=== PATIENT | female | born 1985 | race Caucasian/White ===

== ENCOUNTER 2018-09-20 15:11 | Inpatient (IN) ==
[2018-09-20] MEDS: DIPRIVAN 1% 1,000 MG/100 ML BOTTLE IV SCH ×4 (15:21→23:43)
[2018-09-20] MEDS ORDERED: AMIDATE ONE ×2 (15:23)
[2018-09-20] MEDS ORDERED: QUELICIN ONE ×2 (15:23)
[2018-09-20] MEDS ORDERED: NORCURON ONE ×2 (15:23)
[2018-09-20] MEDS ORDERED: VERSED ONE ×6 (15:23→15:47)
[2018-09-20] MEDS ORDERED: DIPRIVAN 1% 2,000 MG/200 ML BOTTLE ONE (15:25)
[2018-09-20] MEDS ORDERED: NS 1,000 ML IV ONE (15:25)
[2018-09-20] MEDS ORDERED: EPIPEN IM ONE (15:26)
[2018-09-20] MEDS ORDERED: PEPCID IV ONE (15:26)
[2018-09-20] MEDS ORDERED: BENADRYL IV ONE (15:26)
[2018-09-20] MEDS ORDERED: SODIUM CHLORIDE 0.9% INJ ONE (15:26)
[2018-09-20] MEDS ORDERED: SOLU-MEDROL IV ONE (15:26)
[2018-09-20] MEDS ORDERED: VERSED IV ONE ×3 (15:26→16:50)
[2018-09-20] MEDS ORDERED: QUELICIN IV ONE (15:26)
[2018-09-20] MEDS ORDERED: ALBUTEROL NEB INH ONE (15:27)
[2018-09-20] MEDS ORDERED: MAGNESIUM SULFATE 2 GM/S.W.I. 2 GM/50 ML IVPB IV ONE (15:27)
[2018-09-20] MEDS ORDERED: EPINEPHRINE IM ONE (15:30)
[2018-09-20 15:32] LABS: ALLEN TEST YES; BE -1.5 mmoll (-3.0-3.0); BLOOD TYPE ARTERIAL; HCO3-(ACT) 23.8 mmoll (20.0-26.0); METHB 1.6 % (0.0-1.5); MODALITY RESUSC BAG; O2(CT) 17.5 mL/dL (15.0-23.0); O2HB 97.2 % (95.0-99.0); PCO2(98.6) 41 mmHg (35-45); PO2(98.6) 455 mmHg (60-100); SAMPLE BLOOD; SAO2 99.8 % (95.0-100.0); THB 11.9 g/dL (11.5-17.4); pH(98.6) 7.37 (7.35-7.45)
[2018-09-20] MEDS ORDERED: ZOFRAN ONE (15:50)
[2018-09-20] MEDS ORDERED: ZOFRAN IV ONE (15:51)
[2018-09-20] MEDS ORDERED: DIPRIVAN 1% IV ONE (15:51)
--- NOTE | 2018-09-20 16:02 | Diag Imaging Result Doc PS360 ---
EXAM: CHEST-1 VIEW INDICATION: SOB TECHNIQUE: One view COMPARISON: 09/02/2018 FINDINGS: Inspiration is suboptimal. An ET tube is in place. The tip projects over the trachea and above the mervat at about the T3 level. The lungs are grossly clear. There is no discrete pleural fluid collection or pneumothorax. Poor inspiration is causing central vascular crowding. Cardiac silhouette is unremarkable. IMPRESSION: ET tube in position as described. Low lung volumes. Essentially unremarkable, otherwise. Electronically signed by Rick Jimenes 09/20/2018 3:59 PM
[2018-09-20 16:45] LABS: BASO# 0.07 X1000 (0.0-0.2); BASO% 0.9 % (0.0-0.8); EOS# 0.11 X1000 (0.0-0.7); EOS% 1.4 % (0.0-10.0); HEMATOCRIT 38.9 % (37.0-47.0); HEMOGLOBIN 12.5 g/dL (12.0-16.0); IMM GRAN# 0.02 X1000 (0.0-0.04); IMM GRAN% 0.2 % (0.0-0.5); LYMPH# 4.52 X1000 (1.2-3.4); MCH 29.4 PG (27-31); MCHC 32.1 g/dL (33-37); MCV 91.5 FL (81-99); MONO# 0.66 X1000 (0.11-0.59); MONO% 8.2 % (1.7-9.3); MPV 11.7 FL (7.4-10.4); NEUT# 2.69 X1000 (1.4-6.5); NEUT% 33.3 % (42.2-75.2); PLT 331 X1000 (130-400); RBC 4.25 XMIL (4.2-5.4); RDW 12.5 % (11.5-14.5); WBC 8.07 X1000 (4.8-10.8)
[2018-09-20 17:02] LABS: AGAP 14; ALB/GLOB RATIO 1.6; ALBUMIN 4.2 g/dL (3.5-5.0); ALKALINE PHOSPHATASE 54 U/L (32-104); BUN 8 mg/dL (8-22); CHLORIDE 102 mmol/L (98-107); COSMO 276; CREATININE 0.7 mg/dL (0.5-0.9); ESTIMATED GFR > 60; GLUCOSE 102 mg/dL (70-104); GOT 15 U/L (10-30); GPT 10 U/L (10-36); MAGNESIUM 1.8 mg/dL (1.5-2.7); POTASSIUM 3.6 mmol/L (3.5-5.1); SODIUM 139 mmol/L (136-145); TCO2 23 mmol/L (25-35); TOTAL BILIRUBIN 0.36 mg/dL (0.20-1.00); TOTAL PROTEIN 6.9 g/dL (6.3-8.3)
--- NOTE | 2018-09-20 17:18 | PROVIDER DOCUMENTATION ---
This chart was entered by Ailyn Harris Scribe, acting as scribe for Patrick Awan MD. HPI-Respiratory General - General Stated Complaint: CANT BREATH Time Seen by Provider: 09/20/18 15:11 Source: RN/ (RN) Allergies/Adverse Reactions: Patient Allergies Allergy/AdvReac Type Severity Reaction Status Date / Time Penicillins Allergy Severe ANAPHYLAXIS Verified 06/19/18 06:12 piperacillin [From Zosyn] Allergy Severe ANAPHYLAXIS Verified 06/19/18 06:12 tazobactam [From Zosyn] Allergy Severe ANAPHYLAXIS Verified 06/19/18 06:12 morphine Allergy Intermediate RASH Verified 06/19/18 06:12 cephalexin monohydrate * AdvReac Mild LEG Verified 06/19/18 06:12 [From Keflex] CRAMPING doxycycline AdvReac Unknown Verified 06/19/18 06:12 levofloxacin [From Levaquin] AdvReac Unknown Verified 06/19/18 06:12 Home Medications: Home Medication List Medication Instructions Recorded Confirmed Last Taken Type Duloxetine [Cymbalta] 20 mg PO BID 05/18/18 09/02/18 09/01/18 History Mesalamine 800 mg PO BID 05/18/18 09/02/18 09/01/18 History Tizanidine HCl [Zanaflex] 8 mg PO QPM PRN 05/18/18 09/02/18 05/17/18 21:00 History Alprazolam [Xanax] 1 mg PO BID PRN PRN 15 Days #30 tab 09/06/18 Unknown Rx Budesonide/Formoterol Fumarate 10.2 gm INHALATION BID 30 Days #1 09/06/18 09/02/18 09/01/18 Rx [Symbicort 160-4.5 Mcg Inhaler] hfa.aer.ad NS Cholecalciferol (Vit D3) [Vitamin 1,000 unit PO DAILY 30 Days #30 tab 09/06/18 Unknown Rx D3] - History of Present Illness-Resp Nature of Presenting Problem: Patient is a 32 year old female who presents to the ED with respiratory distress. 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 Patient's coworkers states patient had received an albuterol treatment and solumedrol prior to arrival in the ED. Patient's coworkers states history of asthma, vocal paralysis and bronchospasm. 1510 - Patient arrived in ED. 1510 - Patient received 0.3 mg of Epi IM 1513 - 20 IV placed in right hand. 1516 - 2.5 mg of Versed given. 1517 - 100 mg of Succ given. 1518 - Bolus hung. Dr. Awan intubated patient with a 7.5 tube. 1520 - 2.5 mg of Versed given. Quality of Pain: reports: tightness Severity in ED: reports: severe Onset/Duration: reports: just prior to arrival Timing: reports: still present Current Respiratory Medication Therapy: Initiated see nurses note Modifying Factors: improves with: nothing Associated Symptoms: reports: shortness of breath Similar Symptoms Previously?: Yes Recently seen or treated by another doctor?: Yes (f) Review of Systems - Adult - REVIEW OF SYSTEMS - ADULT ROS:: unobtainable per condition Constitutional: reports: no symptoms reported Eyes: reports: no symptoms reported Ears, Nose, Mouth & Throat: reports: no symptoms reported Cardiovascular: reports: no symptoms reported Respiratory: reports: no symptoms reported Gastrointestinal: reports: no symptoms reported Genitourinary: reports: no symptoms reported Musculoskeletal: reports: no symptoms reported Integumentary: reports: no symptoms reported Neurological: reports: no symptoms reported Psychiatric: reports: no symptoms reported Endocrine: reports: no symptoms reported Hematologic/Lymphatic: reports: no symptoms reported Allergic/Immunologic: reports: no symptoms reported All Other Systems: Reviewed and Negative Past History - Adult - PAST MEDICAL HISTORY-ADULT Review of Records: reports: Nursing Assessment Review, Medications Reviewed, Social history reviewed & non-contributory. Major Childhood Illnesses: reports: denies history Cardiovascular: reports: denies history Respiratory: reports: asthma Gastrointestinal: reports: Crohn's, GERD Obstetrical/Gynecological: reports: denies history Genitourinary: reports: kidney stones Musculoskeletal: reports: denies history Neurological: reports: headaches/migraines Psychiatric: reports: denies history Endocrine/Immune: reports: denies history Other Conditions: reports: denies history - PRIOR SURGERIES/PROCEDURES Surgical/Procedure History: reports: BTL, bowel surgery (RESECTION), other (lithrotripsy) - IMMUNIZATION STATUS Childhood Immunizations: See Nurse Assessment Flu Vaccine: See Nurse Assessment - FAMILY HISTORY Family History: reviewed, not pertinent - SOCIAL HISTORY Smoking: denies Substance Use: denies Living Situation: family Physical Exam-General - PHYSICAL EXAM-ADULT Initial Vital Signs Reviewed: Yes - CONSTITUTIONAL General Appearance: alert, severe distress - RESPIRATORY Respiratory: respiratory distress (severe), decreased breath sounds, wheezing - CARDIOVASCULAR Cardiovascular: no edema, no murmur, tachycardia (regular) - GASTROINTESTINAL (ABDOMEN) Abdominal Exam: non tender, soft - MUSCULOSKELETAL Extremity: no pedal edema, no calf tenderness, normal capillary refill - NEUROLOGIC Neurologic: grossly normal Progress - PLAN OF CARE/RESULTS Progress/Plan/Lab Results: Vital Signs - 8 hr 09/20/18 15:17 09/20/18 15:18 09/20/18 15:20 Pulse Rate 125 H 124 H 123 H Respiratory Rate 18 18 Blood Pressure 182/157 137/98 146/89 O2 Sat by Pulse Oximetry 100 100 09/20/18 15:22 09/20/18 15:26 09/20/18 15:28 Pulse Rate 115 H 148 H 148 H Respiratory Rate Blood Pressure 124/74 116/87 113/101 O2 Sat by Pulse Oximetry 100 100 100 09/20/18 15:31 09/20/18 15:34 09/20/18 15:38 Pulse Rate 131 H 120 H 135 H Respiratory Rate Blood Pressure 120/87 135/80 129/80 O2 Sat by Pulse Oximetry 99 100 100 09/20/18 15:45 09/20/18 15:56 09/20/18 15:58 Pulse Rate 132 H 125 H 118 H Respiratory Rate Blood Pressure 133/56 121/66 117/68 O2 Sat by Pulse Oximetry 100 100 100 09/20/18 16:00 09/20/18 16:02 09/20/18 16:04 Pulse Rate 125 H 133 H 127 H Respiratory Rate Blood Pressure 99/69 118/68 119/73 O2 Sat by Pulse Oximetry 100 100 100 09/20/18 16:06 09/20/18 16:08 09/20/18 16:10 Pulse Rate 124 H 126 H 124 H Respiratory Rate Blood Pressure 129/80 124/74 118/74 O2 Sat by Pulse Oximetry 100 100 100 09/20/18 16:12 09/20/18 16:14 09/20/18 16:34 Pulse Rate 125 H 123 H 126 H Respiratory Rate Blood Pressure 115/78 121/74 116/74 O2 Sat by Pulse Oximetry 100 100 98 09/20/18 16:43 09/20/18 16:47 09/20/18 16:50 Pulse Rate 127 H 123 H 126 H Respiratory Rate Blood Pressure 114/68 O2 Sat by Pulse Oximetry 99 100 100 09/20/18 17:00 09/20/18 17:02 09/20/18 17:10 Pulse Rate 119 H 119 H 115 H Respiratory Rate Blood Pressure 127/77 O2 Sat by Pulse Oximetry 100 100 100 Laboratory Results - last 24 hr 09/20/18 09/20/18 09/20/18 15:25 15:25 15:25 WBC 8.07 RBC 4.25 Hgb 12.5 Hct 38.9 MCV 91.5 MCH 29.4 MCHC 32.1 L RDW Std Deviation 12.5 Plt Count 331 MPV 11.7 H Immature Gran % (Auto) 0.2 Neut % (Auto) 33.3 L Lymph % (Auto) 56.0 H Winkler % (Auto) 8.2 Eos % (Auto) 1.4 Baso % (Auto) 0.9 H Immature Gran # (Auto) 0.02 Neut # (Auto) 2.69 Lymph # (Auto) 4.52 H Winkler # (Auto) 0.66 H Eos # (Auto) 0.11 Baso # (Auto) 0.07 Specimen Type ARTERIAL Sample Site R RADIAL pH 7.37 pCO2 41 pO2 455 H HCO3 23.8 Base Excess -1.5 Oxyhemoglobin 97.2 ABG O2 Sat (Calculated) 17.5 ABG O2 Saturation 99.8 ABG Carboxyhemoglobin 1.00 ABG Methemoglobin 1.6 H Tato Test YES A-a O2 Difference 207.0 Total Hemoglobin 11.9 Lactate 2.70 H Blood Gas Modality RESUSC BAG FiO2 % 100.0 Sodium 139 Potassium 3.6 Chloride 102 Carbon Dioxide 23 L Anion Gap 14 BUN 8 Creatinine 0.7 Estimated GFR/1.73 m2 > 60 BUN/Creatinine Ratio 11 Glucose 102 Calculated Osmolality 276 Calcium 9.0 Magnesium 1.8 Total Bilirubin 0.36 AST 15 ALT 10 Alkaline Phosphatase 54 Total Protein 6.9 Albumin 4.2 Globulin 2.7 Albumin/Globulin Ratio 1.6 Orders Category Date Time Status CHEST-1 VIEW [RAD] Stat Exams 09/20/18 15:24 Completed ABG [RESP] Routine Lab 09/20/18 15:25 Completed CBC WITH ELECTRONIC DIFF [HEME] Stat Lab 09/20/18 15:25 Completed CMP [COMPREHENSIVE METABOLIC PANEL] [CHEM] Stat Lab 09/20/18 15:25 Completed MAGNESIUM [CHEM] Stat Lab 09/20/18 15:25 Completed 0.9% Sodium Chloride Inj [Ns] 1,000 ml Med 09/20/18 15:25 Active IV 125 mls/hr Albuterol [Albuterol Neb] Med 09/20/18 15:27 Discontinued 10 mg INH NOW ONE Diphenhydramine [Benadryl] Med 09/20/18 15:26 Discontinued 50 mg IV NOW ONE Epinephrine Med 09/20/18 15:30 Discontinued 0.3 mg IM NOW ONE Etomidate [Amidate] Med 09/20/18 15:23 Discontinued 40 mg .ROUTE .STK-MED ONE Famotidine [Pepcid] Med 09/20/18 15:26 Discontinued 20 mg IV NOW ONE Magnesium Sulfate 2 gm/S.w.i. [Magnesium Sulfate 2 gm/S Med 09/20/18 15:27 Discontinued .w.i] 2 gm in 50 ml IV NOW Methylprednisolone Sod Succ [Solu-Medrol] Med 09/20/18 15:26 Discontinued 125 mg IV STAT ONE Midazolam [Versed] Med 09/20/18 15:23 Discontinued 5 mg .ROUTE .STK-MED ONE Midazolam [Versed] Med 09/20/18 15:28 Discontinued 5 mg .ROUTE .STK-MED ONE Midazolam [Versed] Med 09/20/18 15:26 Discontinued 5 mg IV NOW ONE Midazolam [Versed] Med 09/20/18 15:46 Discontinued 5 mg IV NOW ONE Midazolam [Versed] Med 09/20/18 16:50 Discontinued 5 mg IV NOW ONE Ondansetron [Zofran] Med 09/20/18 15:50 Discontinued 4 mg .ROUTE .STK-MED ONE Ondansetron [Zofran] Med 09/20/18 15:51 Discontinued 4 mg IV NOW ONE Propofol [Diprivan 1%] Med 09/20/18 15:51 Discontinued 10 mg IV NOW ONE Propofol [Diprivan 1%] Med 09/20/18 15:25 Discontinued 1,000 mg in 100 ml .ROUTE As directed Propofol [Diprivan 1%] Med 09/20/18 16:00 Active 1,000 mg in 100 ml IV As Directed mls/hr Sodium Chloride 0.9% Med 09/20/18 15:26 Discontinued 5 - 10 ml INJ NOW ONE Succinylcholine [Quelicin] Med 09/20/18 15:26 Discontinued 100 mg IV NOW ONE Succinylcholine [Quelicin] Med 09/20/18 15:23 Discontinued 200 mg .ROUTE .STK-MED ONE Vecuronium [Norcuron] Med 09/20/18 15:23 Discontinued 10 mg .ROUTE .STK-MED ONE Aerosol Treatments Routine Oth 09/20/18 15:27 Active Aerosol Treatments Stat Oth 09/20/18 15:27 Active EKG [EKG] Stat Ther 09/20/18 15:25 Ordered Result Diagrams: 09/20/18 15:25 09/20/18 15:25 - XRAY 1 XRAY Study: Chest Impression: See EMR Report (EXAM: CHEST-1 VIEW INDICATION: SOB TECHNIQUE: One view COMPARISON: 09/02/2018 FINDINGS: Inspiration is suboptimal. An ET tube is in place. The tip projects over the trachea and above the mervat at about the T3 level. The lungs are grossly clear. There is no discrete pleural fluid collection or pneumothorax. Poor inspiration is causing central vascular crowding. Cardiac silhouette is unremarkable. IMPRESSION: ET tube in position as described. Low lung volumes. Essentially unremarkable, otherwise. Electronically signed by Rick Jimenes 09/20/2018 3:59 PM 09/20/18 [id number] Interpreting Physician: Rick Jimenes MD Dictated Date/Time: 09/20/18 1558 cc: Patrick Awan MD; None,PCP) - CONSULTS/PCP/HOSPITALIST Notification #1 *Consult/PCP/Hospitalist*: ORTIZ Francois for Hospitalist Time Discussed: 17:14 (Dr. Lemus accepted admit ) Reason/Comments: Dr. Awan consulted with Priscila about patient. Consult Disposition: Admit Procedures - INTUBATION Time of Intubation: 15:18 Intubation Method: orotracheal Equipment: Other (MAC 3) Tube Size (cm): 7.5 Pretreated with 100% Oxygen?: Yes Breath Sounds after Intubation: equal ETT Primary Tube Confirmation: Capnometry CO2 Change, Direct Visualization, Chest Rise and Fall, Tube placement verified on XRAY Intubation Complications: no complications Vent Settings: See Respiratory Therapy Notes Departure - Departure Date of Disposition Decision: 09/20/18 Time of Disposition Decision: 16:47 DIAGNOSIS: Acute respiratory distress Disposition: ADMITTED INPATIENT 09 Certified Medical Emergency: Emergent Condition: Fair Referrals and Follow-Ups: None,PCP [NON-STAFF PROVIDER] - - Critical Care Note This patient required my direct & personal management of CC.: Yes Total Time (mins): 61 Critical Care Statement: This patient required my direct personal management to treat or rule out processes, the absence of which, could potentiallly result in sudden, clinically significant life or limb threatening deterioration. Attestation - Physician/ SHELLY Attestation Patient care was provided by Advanced Practice Provider:: No The physician spent face to face time with patient:: Yes Advanced Practice Provider documentation review:: Supervising physician onsite and consulted in the evaluation and care of this patient. The physician did have a face to face encounter with the patient. This chart was documented by the indicated scribe, (Ailyn Harris Scribe) and accurately reflects the services I performed and decisions made by me, Patrick Awan MD, as attested by the provider's signature.
[2018-09-20] MEDS ORDERED: PHENERGAN IM ONE (17:42)
[2018-09-20] MEDS ORDERED: HALDOL IV PRN (18:23)
[2018-09-20] MEDS ORDERED: HALDOL IV SCH (18:30)
[2018-09-20 19:04] LABS: URINE SOURCE CATH
[2018-09-20] MEDS ORDERED: ATIVAN IV PRN (19:07)
[2018-09-20] MEDS ORDERED: ZOFRAN IV PRN (19:07)
[2018-09-20] MEDS ORDERED: DUONEB (A & A) INH PRN (19:07)
[2018-09-20 19:12] LABS: BILIRUBIN URINE NEGATIVE (NEGATIVE); BLOOD URINE TRACE (NEGATIVE); COLOR YELLOW; GLUCOSE URINE NEGATIVE (NEGATIVE); KETONE URINE NEGATIVE (NEGATIVE); LEUKOCYTES URINE NEGATIVE (NEGATIVE); NITRITE URINE NEGATIVE (NEGATIVE); PH URINE 5.5; PROTEIN URINE NEGATIVE (NEGATIVE); SP GRAVITY URINE 1.004; TURBIDITY URINE CLEAR (CLEAR); UROBILINOGEN URINE NORMAL (NORMAL)
[2018-09-20 19:13] LABS: UR EPITHELIAL CELLS <10 /HPF (<10); URINE BACTERIA NEGATIVE /HPF; URINE RBC <10 /HPF (<10); URINE WBC <10 /HPF (<10)
--- NOTE | 2018-09-20 19:13 | HISTORY AND PHYSICAL ---
CHIEF COMPLAINT: Respiratory distress. 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 Actually I talked to her this morning, and she did not have any problems apparently at all. Apparently, the patient's coworkers reported the patient said she was not able to breathe. According to the ER nursing staff, the patient was in severe respiratory distress, and she received epinephrine and Solu- Medrol prior to the arrival to the ER, but she stopped breathing, so that is why she was intubated. She had been hospitalized here from 09/02/2018 to 09/06/2018. She was discharged with the diagnoses of panic disorder, fibromyalgia, depression, bronchial asthma and possible vocal cord dysfunction. Here, upon my examination, she is intubated, and she is almost maxed out on a Diprivan drip but she is able to follow commands, and she tries to write down what she wants to say. She is on the ventilator. She is going to be sent to the intensive care unit. PAST MEDICAL HISTORY: 1. Bronchial asthma. 2. Paroxysmal laryngospasm. 3. Anxiety disorder. 4. Crohn disease. 5. Possible vocal cord dysfunction. PAST SURGICAL HISTORY: Bilateral tubal ligation. SOCIAL HISTORY: The patient is . 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 The patient never smoked. She does not drink alcohol or use any illicit drugs. FAMILY HISTORY: Positive for Crohn disease, asthma, COPD breast cancer, diabetes, leukemia and hypertension. REVIEW OF SYSTEMS: Not possible to obtain because of the clinical situation of the patient being intubated. ALLERGIES: The patient is apparently allergic to penicillin, Zosyn, morphine, cephalexin, doxycycline and levofloxacin. PHYSICAL EXAMINATION: VITAL SIGNS: Temperature 98.1, heart rate 110, respiratory rate 12, blood pressure 123/75, O2 saturation 100% on mechanical ventilator at FiO2 of 50%. GENERAL: This is a 32-year-old female lying in bed in no acute distress. Pupils equal, round, reactive to light and accommodation. Anicteric sclerae and pale conjunctivae. Patient intubated. NECK: No JVD noted. No carotid bruits. No lymphadenopathy. No thyromegaly. CARDIOVASCULAR EXAM: S1-S2 heard. No murmurs, gallops, or rubs. Regular rate and rhythm. RESPIRATORY: Minimal coarse breath sounds and wheezing in both pulmonary bases. The patient is not having any work of breathing or using any accessory muscles. ABDOMEN: Soft, nontender to palpation. Bowel sounds present. No organomegaly. EXTREMITIES: No clubbing, cyanosis, or edema. Peripheral pulses present in both legs. NEUROLOGICAL: Patient alert and oriented x3. Moves 4 extremities. LABORATORY DATA: White cell count 8.07, hemoglobin 12.5, hematocrit 38.9, platelets 331. ABG shows pH of 7.37, with pCO2 of 41 and PO2 of 455. That was taken on FiO2 of 100%, with normal BMP. ASSESSMENT AND PLAN: 1. Acute respiratory failure. At this point we do not know exactly what triggered this problem. I do not know if she got an episode of laryngospasm again. The fact is, this patient developed acute respiratory failure with respiratory arrest and needed to be intubated. At this point, she is on the ventilator with FiO2 of 50%. At this point, considering her history of allergies, we are going to start Solu-Medrol 80 mg IV every 8 hours, and also Protonix 40 mg IV every 12 hours as well. We are going to consult Dr. George for Pulmonary, and will follow recommendations. We will provide also breathing treatments with DuoNeb every 4 hours scheduled and every 2 hours p.r.n. At this point, considering her normal white count and also on the x-ray that we do not see any signs of infection, I am not going to start any antibiotics yet. We are going to order blood cultures and a sputum culture. We will use Haldol 5 mg IV every 4 hours p.r.n. for agitation. 2. Anxiety disorder. We will use Ativan p.r.n. 3. Possible vocal cord dysfunction. At this point, patient is intubated, so we will monitor this patient closely in the ICU. cc: Curly Stephens MD
[2018-09-20] MEDS: NS 1,000 ML IV SCH (20:46)
[2018-09-20] MEDS: LOVENOX SUBQ SCH (20:59)
[2018-09-20] MEDS: PROTONIX IV SCH (20:59)
[2018-09-20] MEDS: DUONEB (A & A) INH SCH ×2 (22:14→23:38)
[2018-09-20] MEDS: SOLU-MEDROL IV SCH (22:30)
[2018-09-21] MEDS: DIPRIVAN 1% 1,000 MG/100 ML BOTTLE IV SCH ×3 (02:30→07:34)
[2018-09-21] MEDS: DUONEB (A & A) INH SCH ×5 (03:33→20:10)
[2018-09-21 04:40] LABS: ALLEN TEST YES; BE -2.7 mmoll (-3.0-3.0); BLOOD TYPE ARTERIAL; HCO3-(ACT) 22.8 mmoll (20.0-26.0); O2(CT) 17.3 mL/dL (15.0-23.0); O2HB 97.6 % (95.0-99.0); PCO2(98.6) 21 mmHg (35-45); PO2(98.6) 209 mmHg (60-100); SAMPLE BLOOD; SAO2 99.9 % (95.0-100.0); SRATE 16 BPM; THB 12.3 g/dL (11.5-17.4); TVOL 500 mL; pH(98.6) 7.54 (7.35-7.45)
[2018-09-21 04:42] LABS: MODALITY VENTILATOR
[2018-09-21] MEDS: NS 1,000 ML IV SCH ×3 (04:50→20:31)
[2018-09-21 05:27] LABS: AGAP 14; ALB/GLOB RATIO 1.4; ALBUMIN 3.7 g/dL (3.5-5.0); ALKALINE PHOSPHATASE 50 U/L (32-104); BUN 6 mg/dL (8-22); CALCIUM 8.6 mg/dL (8.8-10.2); CHLORIDE 105 mmol/L (98-107); COSMO 278; CREATININE 0.6 mg/dL (0.5-0.9); ESTIMATED GFR > 60; GLUCOSE 178 mg/dL (70-104); GOT 12 U/L (10-30); GPT 9 U/L (10-36); POTASSIUM 3.5 mmol/L (3.5-5.1); SODIUM 138 mmol/L (136-145); TCO2 19 mmol/L (25-35); TOTAL BILIRUBIN 0.19 mg/dL (0.20-1.00); TOTAL PROTEIN 6.3 g/dL (6.3-8.3)
[2018-09-21 05:36] LABS: EOS# 0.02 X1000 (0.0-0.7); EOS% 0.4 % (0.0-10.0); HEMATOCRIT 36.9 % (37.0-47.0); HEMOGLOBIN 12.2 g/dL (12.0-16.0); LYMPH# 0.52 X1000 (1.2-3.4); LYMPH% 10.8 % (20.5-51.1); MCH 29.7 PG (27-31); MCHC 33.1 g/dL (33-37); MCV 89.8 FL (81-99); MONO# 0.05 X1000 (0.11-0.59); MPV 11.1 FL (7.4-10.4); NEUT# 4.23 X1000 (1.4-6.5); NEUT% 87.8 % (42.2-75.2); PLT 255 X1000 (130-400); RBC 4.11 XMIL (4.2-5.4); RDW 12.2 % (11.5-14.5); WBC 4.82 X1000 (4.8-10.8)
[2018-09-21 06:05] LABS: LYMPHS 14 % (21-51); MONO 2 % (1-9); SEGS 84 % (42-75)
[2018-09-21] MEDS: SOLU-MEDROL IV SCH ×3 (06:12→23:01)
--- NOTE | 2018-09-21 07:18 | Diag Imaging Result Doc PS360 ---
EXAM: CHEST-PORTABLE INDICATION: resp failure TECHNIQUE: One view COMPARISON: 09/20/2018 FINDINGS: The ET tube is in stable position. There is a better inspiration on the current study. The lungs remain clear. There is no new consolidation. Cardiac silhouette is stable. IMPRESSION: Better inspiration. Otherwise, stable chest. Electronically signed by Rick Jimenes 09/21/2018 7:16 AM
[2018-09-21] MEDS: PROTONIX IV SCH ×2 (08:31→20:30)
[2018-09-21] MEDS: SODIUM CHLORIDE 0.9% INJ SCH (08:31)
--- NOTE | 2018-09-21 09:34 | PROGRESS NOTE ---
DATE: 09/21/2018 SUBJECTIVE: Patient is sedated and intubated. No acute issues noted as per nursing staff overnight. OBJECTIVE: Vital Signs: Temperature 98.3 degrees, heart rate 82, respiratory rate 16, blood pressure 120/81, and O2 saturation 97% on mechanical ventilator at FiO2 40%. General: This is a 32-year-old, female lying in bed in no acute distress. Sedated and intubated. HEENT: Head is normocephalic and atraumatic. Neck: No JVD noted. No carotid bruits. No lymphadenopathy. No thyromegaly. Cardiovascular: S1, S2 heard. No murmurs, gallops, or rubs. Regular rate and rhythm. Respiratory: Minimal coarse breath sounds in both pulmonary bases, but patient is not using any accessory muscles or having work of breathing. Abdomen: Soft, nontender to palpation. Bowel sounds present. No organomegaly. Extremities: No clubbing, cyanosis, or edema. Peripheral pulses present in both legs. Neurological: Patient is sedated and intubated. LABORATORY DATA: White count 4.82, hemoglobin 12.2, hematocrit 36.9 and platelets 255,000. ABG shows pH 7.54 with pCO2 71, and PO2 209 with normal BMP except mildly elevated glucose 178. ASSESSMENT AND PLAN: 1. Acute respiratory failure on ventilator. As we mentioned yesterday, we do not know exactly what has triggered this problem. At this point, the FiO2 is 40%. ABG shows hyperventilation. We do know that there was an episode of laryngospasm in the past. At this point, we will continue with Solu-Medrol 80 mg IV q. [address] George from pulmonary has been consulted. We will follow recommendations to see what the best time to try to extubate her. For sedation, we are using Diprivan and Ativan p.r.n. We will continue with same management next. 2. Anxiety disorder. Aware. 3. Possible vocal cord dysfunction. Aware. 4. Disposition: We will continue to monitor this patient here in the ICU. cc: Curly Stephens MD
[2018-09-21] MEDS ORDERED: LOPRESSOR IV ONE (10:47)
[2018-09-21] MEDS ORDERED: PHENERGAN IV ONE (11:46)
[2018-09-21] MEDS ORDERED: SODIUM CHLORIDE 0.9% INJ ONE (11:46)
--- NOTE | 2018-09-21 11:47 | PULMONOLOGY CONSULTATION ---
DATE: 09/21/2018 REASON FOR CONSULTATION: Respiratory failure, intubation. HISTORY OF PRESENT ILLNESS: Ms. Romero is a 32-year-old white female with recurrent intubations for respiratory failure. The patient has a history of asthma with most recent PFTs revealing normal spirometry with borderline improvement following bronchodilator and mild restrictive physiology. The patient's history is notable for presentation with asthma and then being intubated several times. She has also had periods where she will panic and have severe wheezing and when calmed down, her airways are clear. The patient has been diagnosed with vocal cord dysfunction syndrome. The patient was intubated in May with her hospital intubation complicated by mediastinal air. This subsequently resolved on follow-up scan. CT scan of the neck was negative. The patient was ultimately extubated and referred to the [facility]. By report, there were no specific recommendations and it was felt that she might be refluxing and triggering these events. The actual report has not been read by this physician. The patient reportedly was doing well yesterday morning when she developed shortness of breath in the afternoon. The patient was taken to the emergency room and promptly intubated. She is now awake, alert, and conversant. She has no elevation in airway pressures. She does have some wheeze noted on forced exhalation, but not on gentle respiration. She becomes tachycardic when her sedation is reversed. PAST MEDICAL HISTORY: Problem list: 1. Vocal cord dysfunction. 2. Probable asthma. 3. Crohn disease. 4. Anxiety disorder. 5. Fibromyalgia with negative rheumatologic evaluation. 6. Status post bilateral tubal ligation. 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 No alcohol use. Her mother reports she drinks "a lot of Mountain Dew". FAMILY HISTORY: Positive for Crohn disease, asthma, COPD, breast cancer, diabetes, leukemia, and hypertension. REVIEW OF SYSTEMS: Limited with intubated status. PHYSICAL EXAMINATION: General: Reveals a well-developed, well-nourished, white female who is arousable to alert. She wants the endotracheal tube removed. Vital signs: Heart rate was 89 prior to weaning Diprivan and is now 130. Oxygen saturation 100%. Peak inspiratory pressure on mechanical ventilation is 22. HEENT: Pupils are equal and reactive. Oropharynx appears clear without edema. Neck: Appears supple. Chest: Clear breath sounds on quiet inspiration. On coughing, there is wheeze noted. Cardiac: S1, S2, increased rate. Abdomen: Soft. Extremities: Without edema. LABORATORY DATA: Arterial blood gas reveals a pH 7.54, pCO2 of 21, PO2 of 209. White blood count 4.82, hemoglobin 12.2, platelet count 255,000. Sodium 138, potassium 3.5, chloride 105, bicarbonate 19, anion gap 14, BUN 6, glucose 178. IMAGING: Chest x-ray reveals shallow inspiration with no acute infiltrates. IMPRESSION: A complicated 32-year-old white female with probable component of asthma, but who also likely has a component of vocal cord dysfunction. Although patient has faint wheezing on forced exhalation, she does not have other signs consistent with status asthmatic such as high airway pressures. She has had extensive evaluation in the past including immunoglobulin levels, C3 levels, C4 levels, CH 50 levels, echocardiograms, multiple CT scans of the chest and a CT scan of the neck. She has also undergone allergy testing without major allergies identified by mother's report. RECOMMENDATION: 1. Hold sedation. 2. We will try a beta parth to see if her heart rate can be decreased safely with a beta- parth in the event that this may trigger bronchospasm. I will do this prior to extubation. 3. Past medical records, to obtain records from the [facility] Speech [facility]. 4. Continue steroids and bronchodilators. 5. Additional recommendations pending hospital course. Time spent in critical care management: 95 minutes cc: Reji George MD [facility]
[2018-09-21] MEDS ORDERED: LOPRESSOR IV STA (12:58)
[2018-09-21] MEDS ORDERED: LOPRESSOR ONE (13:00)
--- NOTE | 2018-09-21 14:36 | Diag Imaging Result Doc PS360 ---
EXAM: CHEST-PORTABLE INDICATION: NG placement TECHNIQUE: One view COMPARISON: 09/21/2018 FINDINGS: There is a newly placed NG tube. The tip projects below the diaphragm and is assumed to be called within the stomach in expected position. Limited views of the lung bases are grossly unremarkable. IMPRESSION: Newly placed NG tube as described in the expected position. Electronically signed by Rick Jimenes 09/21/2018 2:34 PM
[2018-09-21] MEDS: DEMEROL IV PRN ×2 (15:35→20:31)
[2018-09-21] MEDS ORDERED: OFIRMEV 1000 MG/ISOTONIC SOLN 1,000 MG/100 ML BOTTLE IV PRN (16:23)
[2018-09-21] MEDS: LOVENOX SUBQ SCH (20:31)
[2018-09-22] MEDS: DEMEROL IV PRN ×3 (02:30→10:21)
[2018-09-22] MEDS: DUONEB (A & A) INH SCH ×6 (03:46→23:24)
[2018-09-22] MEDS: NS 1,000 ML IV SCH (04:17)
[2018-09-22 05:12] LABS: HEMATOCRIT 34.6 % (37.0-47.0); HEMOGLOBIN 10.9 g/dL (12.0-16.0); IMM GRAN# 0.02 X1000 (0.0-0.04); IMM GRAN% 0.2 % (0.0-0.5); LYMPH# 0.69 X1000 (1.2-3.4); LYMPH% 5.3 % (20.5-51.1); MCH 29.2 PG (27-31); MCHC 31.5 g/dL (33-37); MCV 92.8 FL (81-99); MONO# 0.29 X1000 (0.11-0.59); MONO% 2.2 % (1.7-9.3); MPV 11.7 FL (7.4-10.4); NEUT# 11.93 X1000 (1.4-6.5); NEUT% 92.3 % (42.2-75.2); PLT 227 X1000 (130-400); RBC 3.73 XMIL (4.2-5.4); RDW 13.1 % (11.5-14.5); WBC 12.93 X1000 (4.8-10.8)
[2018-09-22 05:44] LABS: AGAP 9; ALB/GLOB RATIO 1.9; ALBUMIN 3.7 g/dL (3.5-5.0); ALKALINE PHOSPHATASE 42 U/L (32-104); BUN 12 mg/dL (8-22); CALCIUM 8.2 mg/dL (8.8-10.2); CHLORIDE 113 mmol/L (98-107); COSMO 289; CREATININE 0.5 mg/dL (0.5-0.9); ESTIMATED GFR > 60; GLUCOSE 145 mg/dL (70-104); GOT 15 U/L (10-30); GPT 10 U/L (10-36); PHOSPHORUS 3.2 mg/dL (2.7-4.5); POTASSIUM 4.3 mmol/L (3.5-5.1); SODIUM 144 mmol/L (136-145); TCO2 22 mmol/L (25-35); TOTAL BILIRUBIN 0.35 mg/dL (0.20-1.00); TOTAL PROTEIN 5.7 g/dL (6.3-8.3)
[2018-09-22 06:03] LABS: LYMPHS 7 % (21-51); MONO 3 % (1-9); SEGS 90 % (42-75)
[2018-09-22] MEDS: SOLU-MEDROL IV SCH (06:07)
--- NOTE | 2018-09-22 07:11 | Diag Imaging Result Doc PS360 ---
EXAM: CHEST-PORTABLE 09/22/2018 HISTORY: resp failure TECHNIQUE: AP portable at 0420 COMMENT: There are platelike opacities in the left base and also in the medial right base. This was also apparently present on 09/21/2018. IMPRESSION: Bibasilar atelectasis and/or pneumonia. Electronically signed by Fuad Awan 09/22/2018 7:09 AM
--- NOTE | 2018-09-22 07:53 | EKG Report ---
Test Performed on : 09/21/2018 4:52:44 PM Test Reason : chest pain Blood Pressure : / mmHG Vent. Rate : 093 BPM Atrial Rate : 093 BPM P-R Int : 154 ms QRS Dur : 080 ms QT Int : 366 ms P-R-T Axes : 114 156 152 degrees QTc Int : 455 ms Suspect arm lead reversal, interpretation assumes no reversal Normal sinus rhythm. with sinus arrhythmia. Right axis deviation Abnormal ECG When compared with ECG of 05-SEP-2018 15:49, QRS axis shifted right ST no longer depressed in Anterior leads T wave inversion no longer evident in Anterior leads T wave inversion now evident in Lateral leads Unconfirmed Result
[2018-09-22] MEDS: PROTONIX IV SCH ×2 (08:16→21:52)
--- NOTE | 2018-09-22 08:20 | PROGRESS NOTE ---
DATE: 09/22/2018 SUBJECTIVE: Patient has been successfully extubated yesterday. She is feeling fine. No acute issues noted as per nursing staff overnight, just mild nausea. OBJECTIVE: Vital Signs: Temperature 98.4 degrees, heart rate 56, respiratory 19, blood pressure 119/74, O2 saturation 94% on room air. General: This is a 32-year-old, female lying in bed, in no acute distress. Cardiovascular: S1, S2 heard. No murmurs, gallops, or rubs. Regular rate and rhythm. Respiratory: Minimal wheezing in both pulmonary bases. Patient not using any accessory muscles or having work of breathing. Abdomen: Soft. Nontender to palpation. Bowel sounds present. No organomegaly. Extremities: No clubbing cyanosis or edema. Peripheral pulses present in both legs. Neurological: Patient alert, oriented x3. Moves 4 extremities. LABORATORY DATA: Reviewed. ASSESSMENT AND PLAN: 1. Acute respiratory failure. Now patient is not requiring any oxygen supplementation. The patient has asthma and she is being followed with by pulmonary Dr. George at this time. She has been extubated successfully. I think at this point, we can decrease the doses of Solu- Medrol from 80 q.8 to 40 q.8 and we will continue to taper it off slowly. 2. Anxiety disorder, aware. At this point, patient is feeling okay. 3. Possible vocal cord dysfunction. The patient has been evaluated because of this condition. We will continue to monitor. 4. Disposition. We are going to transfer this patient to a regular room today. Start a clear liquid diet and we will go from there. There is a possibility that we may send this patient home today if she is feeling fine. We will talk with Dr. George later on today and see what he thinks. Addendum: I was called by nurse because patient was experiencing chest pain since last night. EKG showed bradycardia. She reports seeing her heart rate between 40 and sometimes it goes to 150. Will order an echo and consult Cardiology. cc: Curly Stephens MD MTDD
--- NOTE | 2018-09-22 08:52 | EKG Report ---
Test Performed on : 09/22/2018 02:55:20 AM Test Reason : Bradycardia Blood Pressure : / mmHG Vent. Rate : 050 BPM Atrial Rate : 050 BPM P-R Int : 144 ms QRS Dur : 084 ms QT Int : 446 ms P-R-T Axes : 063 044 040 degrees QTc Int : 406 ms Sinus bradycardia. with sinus arrhythmia. Otherwise normal ECG When compared with ECG of 21-SEP-2018 16:52, (Unconfirmed) Vent. rate has decreased BY 43 BPM QRS axis shifted left QT has shortened Unconfirmed Result
[2018-09-22] MEDS: VITAMIN D PO SCH (10:21)
[2018-09-22] MEDS ORDERED: ZANAFLEX PO PRN (13:08)
[2018-09-22] MEDS: PREDNISONE PO SCH (13:18)
[2018-09-22] MEDS: NORCO-10 PO PRN (14:01)
[2018-09-22] MEDS ORDERED: SOLU-MEDROL IV SCH (15:00)
--- NOTE | 2018-09-22 15:04 | PULMONOLOGY PROGRESS NOTE ---
DATE: 09/22/2018 INTERIM HISTORY: Patient has done well off mechanical ventilation. She had some mild bradycardia over the evening. She received 2 mg of Ativan and Demerol. She does not know why she received the Ativan. She reports she has some pain after a fall. Uriostegui catheter has been removed. OBJECTIVE: General: The patient is awake, alert, and conversant. Her voice is soft but clear. Vital signs: The patient has been afebrile for the last 24 hours. Blood pressure 142/79, heart rate 54, respiratory rate 16, oxygen saturation 97% on room air. HEENT: Pupils are equal and reactive. Oropharynx appears clear. Neck: Supple without wheezing. Chest: Good air entry bilaterally without wheezing. Cardiac: S1, S2. Abdomen: Soft without hepatosplenomegaly. Extremities: Without edema. LABORATORIES: Chest x-ray reveals some platelike atelectasis in both lung bases. White blood count 12.9, hemoglobin 10.9, platelet count 227,000. IMPRESSION: A 32-year-old with asthma with vocal cord dysfunction and acute respiratory failure requiring intubation. I suspect patient has a mild asthma which may trigger a cough and this ultimately leads to vocal cord spasm, although it is difficult to verify this observation. Currently she is awake, alert, and conversant. She has an anxiety disorder, but does drink a significant amount of caffeine. She will be counseled about the importance of cessation of caffeine. She reports she is following reflux precautions. She does have some atelectasis on chest x-ray. She did receive Ativan last evening, although not well documented why. RECOMMENDATIONS: 1. Limit pain medicines and Ativan in Ms. Romero if possible. Would not recommend providing a prescription for a at discharge. This was done at her recent discharge. 2. If the patient needs chronic pain medications or anxiolytics, I would have patient go through Dr. Mendez for these medications. 3. Encourage counseling/cognitive behavioral therapy as recommended by the evaluation at [facility]. 4. P.o. intake as tolerated today. 5. Agree with discontinuation of Uriostegui catheter. 6. Decrease IV fluids. 7. Transition to oral steroids. 8. Recommend 2-view chest x-ray tomorrow. If she continues to do well, then she can be discharged tomorrow morning. cc: Reji George MD [facility]
--- NOTE | 2018-09-22 15:15 | PROGRESS NOTE ---
DATE: 09/22/2018 REASON FOR CONSULTATION: 1. Episode of atypical left-sided chest discomfort, sharp in character, with associated bradycardia. Suspect discomfort more likely noncardiac and possibly associated with vagally mediated slowing. ECG during episode of chest discomfort without any ischemic change. 2. Recurrent intubations for respiratory failure. 3. Asthma, longstanding. 4. Vocal cord dysfunction. 5. Crohn disease. 6. Anxiety/panic disorder. 7. Fibromyalgia. RECOMMENDATIONS: 1. Continue to monitor and consider repeat ECG during her episodes. 2. Abdominal ultrasound to screen for gallbladder disease. HISTORY: This 32-year-old white female with multiple intubations for respiratory failure, asthma, vocal cord dysfunction, anxiety disorder, Crohn disease, and fibromyalgia was hospitalized a few days ago for respiratory distress. The patient was doing fine two days ago and was observed here at work doing well. She developed abrupt onset of shortness of breath in the afternoon. She was taken to the emergency room and intubated. She has since been extubated. She has had some left- sided sharp discomfort that radiates to the left posterior chest that occurs spontaneously. She might have some sinus bradycardia during episodes. ECG was obtained with such an episode earlier this morning and revealed no ischemic changes. It is for this reason Cardiology consultation was requested. She has had multiple intubations over the last 6 months. She describes developing shortness of breath, chest pressor, and may at times have stridor. Following hospitalization this past May, she had consultation with ENT and was found to have vocal cord dysfunction. She does not smoke. PAST MEDICAL HISTORY: 1. Asthma. 2. Crohn disease. 3. Anxiety/panic disorder. 4. Fibromyalgia. 5. Vocal cord dysfunction. 6. Status post bilateral tubal ligation. ALLERGIES: She is allergic or intolerant to several medications including penicillins, piperacillin, Tazobactam, morphine among others listed in the record. SOCIAL HISTORY: She works as a nurse at [employer]. She does not smoke or use alcohol. FAMILY HISTORY: Positive for Crohn disease, COPD, breast cancer and diabetes. REVIEW OF SYSTEMS: Pulmonary: Noncontributory beyond history of present illness. Gastrointestinal: Noncontributory beyond history of present illness. Constitutional: Noncontributory beyond history of present illness. The remainder of review of systems negative/noncontributory beyond history present illness with 14 total systems reviewed. PHYSICAL EXAMINATION: General: A well-developed, well-nourished white female in no distress. Vital signs: Blood pressure 142/79, heart rate 54 and regular. Oxygen saturation 97% on room air. HEENT examination: Extraocular movements appear intact. Mucous membranes are moist. Neck: Supple without jugular venous distention. There are no carotid bruits. Chest: Clear to auscultation. Cardiac Exam: Reveals a regular rate and rhythm without appreciable murmur or gallop. Abdomen: Soft. Bowel sounds are normal. Extremities: Without edema. Neurologic exam: Reveals her to be alert and fully oriented. Speech is fluent. She moves all 4 extremities equally well. Skin: Warm and dry. Psych exam: Reveals her mood to be appropriate. PERTINENT DATA: Twelve lead EKG yesterday demonstrates arm lead reversal. Normal sinus rhythm with sinus arrhythmia. Heart rate of 93 beats per minute. Twelve lead EKG obtained this morning during chest discomfort episode demonstrates sinus bradycardia at 50 beats per minute, but is otherwise within normal limits. Laboratory study includes a white blood cell count of 12.93, hematocrit 34.6, hemoglobin 10.9, platelet count 227. Sodium 144, potassium 4.3, chloride 113, carbon dioxide 22. BUN 12 creatinine 0.5, glucose 145. Initial troponin less than 0.01. Followup troponin less than 0.01. Echocardiography study performed 06/06/2018 demonstrates normal left ventricular ejection fraction of 65 to 70 percent without wall motion abnormality evident. Right ventricle appeared normal. There was mild tricuspid regurgitation. Systolic PA pressure was normal by Doppler. There was mild mitral regurgitation. cc: Mick Kothari MD
[2018-09-22] MEDS: SYMBICORT 160/4.5 MICROGM INHALER INH SCH ×2 (16:24→20:27)
[2018-09-22] MEDS ORDERED: SOLU-MEDROL IV ONE (16:53)
[2018-09-22] MEDS ORDERED: SOLU-MEDROL ONE (17:10)
--- NOTE | 2018-09-22 20:03 | ECHO REPORT ---
ORDER DATE: 09/22/2018 INDICATION: This is a 32-year-old female with chest pain. M-MODE MEASUREMENTS: Left ventricle end diastole: 4.7. Left ventricle end systole: 3.0. Posterior wall: 0.8. Interventricular septum: 0.7. Left atrium: 3.5. Aortic diameter: 3.2. SUMMARY OF 2-DIMENSIONAL IMAGIN. Left ventricular function is normal. Ejection fraction is estimated at 66%. There is no wall motion abnormality. 2. The right ventricle is normal. 3. The aortic valve is normal. Color flow mapping unremarkable. 4. The mitral valve is normal. Color flow mapping unremarkable. 5. Pulsed wave Doppler of mitral inflow is normal. 6. Tissue Doppler of septal and lateral mitral annulus averages 14 cm. 7. There is no diastolic dysfunction. 8. The tricuspid valve is normal. Color flow mapping unremarkable. Pulmonary pressure is somewhat elevated on the order of 34-39 mmHg. 9. The pulmonic valve is unremarkable. 10.The aortic valve has 3 cusps. They open normally. Color flow mapping unremarkable. SUMMARY: This study shows: 1. Normal left ventricular systolic function. 2. No diastolic dysfunction. 3. Normal valvular structures. 4. Inferior vena cava appears to be enlarged, and because of that, the pulmonary systolic pressure is estimated at 35 mmHg. Clinical correlation recommended. cc: MD Curly Hoskins MD
[2018-09-22] MEDS ORDERED: PAXIL PO SCH (21:00)
[2018-09-22] MEDS: DELZICOL PO SCH (21:52)
[2018-09-22] MEDS: SODIUM CHLORIDE 0.9% INJ SCH (21:52)
[2018-09-22] MEDS: CYMBALTA PO SCH (21:52)
[2018-09-22] MEDS: LOVENOX SUBQ SCH (21:53)
[2018-09-23] MEDS: NORCO-10 PO PRN (01:57)
[2018-09-23] MEDS: DUONEB (A & A) INH SCH ×3 (03:33→11:39)
[2018-09-23] MEDS: SYMBICORT 160/4.5 MICROGM INHALER INH SCH (07:11)
[2018-09-23 07:43] VITALS: BP 123/73
[2018-09-23 08:51] LABS: URINE SOURCE CLEAN CATCH
[2018-09-23 09:00] LABS: BILIRUBIN URINE NEGATIVE (NEGATIVE); BLOOD URINE NEGATIVE (NEGATIVE); COLOR YELLOW; GLUCOSE URINE NEGATIVE (NEGATIVE); KETONE URINE NEGATIVE (NEGATIVE); LEUKOCYTES URINE NEGATIVE (NEGATIVE); NITRITE URINE NEGATIVE (NEGATIVE); PROTEIN URINE NEGATIVE (NEGATIVE); TURBIDITY URINE HAZY (CLEAR); UROBILINOGEN URINE NORMAL (NORMAL)
[2018-09-23 09:01] LABS: UR EPITHELIAL CELLS <10 /HPF (<10); URINE BACTERIA 2+ /HPF; URINE RBC <10 /HPF (<10); URINE WBC <10 /HPF (<10)
--- NOTE | 2018-09-23 09:20 | Diag Imaging Result Doc PS360 ---
EXAM: US GB < RUQ (LIMITED) HISTORY: atypical chest pain TECHNIQUE: Right upper quadrant ultrasound COMPARISON: 08/16/2014 FINDINGS: Normal pancreas. No abdominal aortic aneurysm. Normal inferior vena cava. There is a small right-sided pleural effusion. No ascites in the right upper outer. Normal right kidney. No hydronephrosis. Normal liver. The gallbladder is contracted. No stones. The common bile duct measures 5 mm. IMPRESSION: Small right pleural effusion, but otherwise normal right upper quadrant ultrasound Electronically signed by Trever Alicea 09/23/2018 9:17 AM
[2018-09-23 09:47] LABS: BASO# 0.01 X1000 (0.0-0.2); BASO% 0.1 % (0.0-0.8); HEMATOCRIT 38.7 % (37.0-47.0); HEMOGLOBIN 12.4 g/dL (12.0-16.0); IMM GRAN# 0.07 X1000 (0.0-0.04); IMM GRAN% 0.4 % (0.0-0.5); LYMPH# 1.08 X1000 (1.2-3.4); LYMPH% 6.1 % (20.5-51.1); MCH 29.4 PG (27-31); MCV 91.7 FL (81-99); MONO# 0.98 X1000 (0.11-0.59); MONO% 5.5 % (1.7-9.3); MPV 11.8 FL (7.4-10.4); NEUT# 15.66 X1000 (1.4-6.5); NEUT% 87.9 % (42.2-75.2); PLT 259 X1000 (130-400); RBC 4.22 XMIL (4.2-5.4)
[2018-09-23 10:08] LABS: UR AMPHETAMINES QUAL NONE DETECTED (NONE DETECT); UR BARBITUATES QUAL NONE DETECTED (NONE DETECT); UR BENZODIAZEPIN QUAL PRESUMPTIVE POSITIVE (NONE DETECT); UR CANNABINOIDS QUAL NONE DETECTED (NONE DETECT); UR COCAINE QUAL NONE DETECTED (NONE DETECT); UR METHADONE QUAL NONE DETECTED (NONE DETECT); UR OPIATES QUAL PRESUMPTIVE POSITIVE (NONE DETECT); UR OXYCODONE QUAL NONE DETECTED (NONE DETECT); UR PCP QUAL NONE DETECTED (NONE DETECT)
--- NOTE | 2018-09-23 10:17 | Diag Imaging Result Doc PS360 ---
EXAM: CHEST-2 VIEWS HISTORY: abnormal exam TECHNIQUE: Chest two views 09/22/2018 COMPARISON: None. FINDINGS: The lungs are well expanded. The heart is not enlarged. The vessels are not distended. There are basilar infiltrates. Trace pleural fluid. IMPRESSION: Persistent basilar infiltrates and atelectasis. Findings are slightly more prominent in the right base than they were on the prior study. Electronically signed by Trever Alicea 09/23/2018 10:14 AM
[2018-09-23 10:20] LABS: LYMPHS 12 % (21-51); SEGS 82 % (42-75)
[2018-09-23] MEDS ORDERED: LASIX IV ONE (10:25)
[2018-09-23 10:44] LABS: AGAP 13; BUN 12 mg/dL (8-22); CALCIUM 8.4 mg/dL (8.8-10.2); CHLORIDE 103 mmol/L (98-107); COSMO 284; CREATININE 0.6 mg/dL (0.5-0.9); ESTIMATED GFR > 60; GLUCOSE 152 mg/dL (70-104); POTASSIUM 3.4 mmol/L (3.5-5.1); SODIUM 141 mmol/L (136-145); TCO2 25 mmol/L (25-35)
[2018-09-23] MEDS: PREDNISONE PO SCH (10:51)
[2018-09-23] MEDS: CYMBALTA PO SCH (10:52)
[2018-09-23] MEDS: VITAMIN D PO SCH (10:52)
[2018-09-23] MEDS: DELZICOL PO SCH (10:53)
[2018-09-23] MEDS: PROTONIX IV SCH (11:07)
--- NOTE | 2018-09-23 17:57 | PULMONOLOGY PROGRESS NOTE ---
DATE: 09/23/2018 SUBJECTIVE: The patient is awake, alert, and conversant. She has a cough which is dry to clear secretions. OBJECTIVE: Vital Signs: The patient has been afebrile for the last 24 hours. Blood pressure 127/73, heart rate 79, respiratory rate 20, oxygen saturation 98% on room air. HEENT: Pupils are equal and reactive. Oropharynx is clear. Neck: Supple chest reveals good air entry bilaterally without wheezing, rhonchi, or tactile fremitus. Cardiac exam: S1, S2. Extremities: Without edema. DIAGNOSTIC DATA: Chest x-ray reveals basilar atelectasis with small right effusion. Abdominal ultrasound reveals trace right effusion. IMPRESSION: 32-year-old with asthma, vocal cord dysfunction syndrome, recurrent intubation, anxiety disorder, trace effusion likely related to volume resuscitation. The patient's chest x- ray reveals some atelectasis. She is not producing sputum, and is having no fevers. RECOMMENDATIONS: 1. Single dose of Lasix. 2. Hold pain and anxiolytic medications. 3. Encourage counseling/cognitive behavioral therapy as recommended by [facility]. 4. Hold antibiotics pending signs and symptoms of infection given prior allergies. 5. Recommend chest x-ray and follow-up with Dr. Mendez. cc: MD Rick Choe MD
[2018-09-23 20:28] LABS: HIV ANTIBODY SCREEN SEE COMMENTS
--- NOTE | 2018-09-24 01:13 | DISCHARGE SUMMARY ---
ADMISSION DATE: 09/20/2018 DISCHARGE DATE: 09/23/2018 ADMISSION DIAGNOSES: 1. Acute respiratory failure, hypoxemic respiratory failure. 2. Anxiety disorder. 3. Possible vocal cord dysfunction, intubated. DISCHARGE DIAGNOSES: 1. Acute hypoxemic respiratory failure. Has been extubated, is not on oxygen, not requiring oxygen, is on room air. 2. Asthma. Will be followed by Dr. George as outpatient. 3. Anxiety disorder, stable. 4. Possible vocal cord dysfunction. 5. Chest pain with heart rate 40-150. Cardiology was consulted for that. They felt this was noncardiac and that it was more associated with vagally mediated slowing. CONSULTATIONS: 1. Dr. Kothari with cardiology. 2. Dr. eGorge with pulmonology. HOSPITAL COURSE: On 09/20/2018, Ms. 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 Was feeling fine that morning and then had an acute exacerbation of asthma and hypoxemic respiratory failure with severe respiratory distress. She received epinephrine, Solu-Medrol prior to arrival to the ER but stopped breathing and was intubated. She has had very frequent admissions for asthma exacerbation. She was transferred to the ICU, weaned off the ventilator, was transferred to the floor. Essentially had no other complications. Continued on steroids and was followed by Dr. George. Her anxiety was controlled. She did have some complaints of chest pain and had some issues with her heart rate going from 40 to 150. Cardiology evaluated and felt like it was vagally mediated but was stable and she was chest pain free and was ready to go home. DISCHARGE VITAL SIGNS: Temperature 97.6, heart rate 79, respiratory rate 20, blood pressure 123/73, O2 saturation 98% on room air. DISCHARGE LABORATORY DATA: White blood cells 17,000 on steroids. Hemoglobin 12. Hematocrit 38. Platelet count 259. Sodium 141. Potassium 3.4. BUN 12. Creatinine 0.6. Glucose 152. Calcium 8.4. Urinalysis negative. Toxicology positive opiates and amphetamines. DISCHARGE PERTINENT IMAGING: She had a daily chest x-ray essentially: On the and the tracheal tube was in position, low lung volume. On the , better inspiration, there was an NG tube that was placed that day. On the , bibasilar atelectasis and/or pneumonia which looked like it may have been present from the as well. Then the , persistent basilar infiltrates and atelectasis. Then on the 22 of September, she had echocardiogram: EF 66%, pulmonary pressure 34-39 so mildly elevated, no diastolic dysfunction, the IVC apparently appears to be enlarged and because of that the pulmonary systolic pressure is estimated at 35. On 09/23/2018, abdominal ultrasound: Small right pleural effusion, otherwise normal right upper quadrant ultrasound. EKG on the : Normal sinus rhythm, rate 93, QTc 455. On 09/22/2018 EKG: Sinus bradycardia, rate was 50, QTc is 406. DISCHARGE DIET: Regular. DISCHARGE ACTIVITY: As tolerated. FOLLOWUP: With Dr. George. He recommended not discharging with Ativan or pain medications, that she would need to go through her primary care provider, Dr. Mendez. Also encouraged her for counseling cognitive behavioral therapy evaluation at [facility] and transitioned her to the oral steroids. She will need to follow up with him. DISCHARGE MEDICATIONS: 1. Paxil 20 mg p.o. daily. 2. Zanaflex 8 mg p.o. every night. 3. Cymbalta 30 mg p.o. twice daily. 4. Medrol Dosepak. 5. Symbicort 160/4.5 mcg inhaled twice a day. 6. Vitamin D3 1000 units p.o. daily. DISCHARGE INSTRUCTIONS: Take medications as prescribed. If there are any signs or symptoms at all of exacerbation of asthma, please seek medical advice immediately. DISCHARGE DISPOSITION: Home. Dictated by ORTIZ Leonard for Curly Stephens MD Addendum: Patient seen and examined by myself. Agree with ORTIZ note. It reflects my assessment and plan. Patient is being discharged in stable condition to home. Will be seen by primary care doctor in a week. cc: ORTIZ Leonard MD [facility]
[2018-09-24 13:15] LABS: HEPATITIS PROFILE ACUTE SEE COMMENTS
== END 2018-09-23 13:41 | disposition home or self-care (01) | DRG 208 ==
LOC: SUPCPDRO → ED 15:11 → ICU 20:16 → 3N 09-22 09:54
PROVIDERS: ATTEND Internal Medicine
CPT/HCPCS: 51702; 71010; 71020; 71045; 71046; 76705; 80048; 80053; 80074; 80101; 80301; 80307; 80324; 80345; 80346; 80353; 80358; 80361; 80365; 81001; 82550; 82805; 83735; 83992; 84100; 84484; 85025; 86701; 87077; 87088; 87186; 87389; 93005; 93010; 93306; 94002; 94003; 94640; 94761; 96365; 96366; 96372; 96375; 96376; 99285; 99291; A9270; C9113; G0431; G0434; G0479; G0480; J0131; J0171; J0330; J1200; J1630; J1650; J2060; J2175; J2250; J2405; J2550; J2930; J3475; J7030; J7506; J7512; S0028; S0164

== ENCOUNTER 2019-02-06 16:47 | Inpatient (IN) ==
[2019-02-06] MEDS ORDERED: SOLU-MEDROL ONE (16:57)
[2019-02-06] MEDS ORDERED: DUONEB (A & A) ONE (16:59)
[2019-02-06] MEDS ORDERED: AMIDATE ONE (17:01)
[2019-02-06] MEDS ORDERED: QUELICIN ONE (17:02)
[2019-02-06] MEDS ORDERED: ATIVAN ONE ×2 (17:10→21:07)
[2019-02-06] MEDS ORDERED: ATIVAN IV ONE ×2 (17:24→21:04)
[2019-02-06 17:31] LABS: BASO# 0.06 X1000 (0.0-0.2); BASO% 0.8 % (0.0-0.8); EOS# 0.09 X1000 (0.0-0.7); EOS% 1.2 % (0.0-10.0); HEMATOCRIT 35.5 % (37.0-47.0); HEMOGLOBIN 11.7 g/dL (12.0-16.0); LYMPH# 2.99 X1000 (1.2-3.4); LYMPH% 41.1 % (20.5-51.1); MCH 30.1 PG (27-31); MCV 91.3 FL (81-99); MONO# 0.54 X1000 (0.11-0.59); MONO% 7.4 % (1.7-9.3); MPV 11.6 FL (7.4-10.4); NEUT% 49.5 % (42.2-75.2); PLT 346 X1000 (130-400); RBC 3.89 XMIL (4.2-5.4); RDW 12.1 % (11.5-14.5); WBC 7.28 X1000 (4.8-10.8)
[2019-02-06 17:40] LABS: ALLEN TEST YES; BE 4.6 mmoll (-3.0-3.0); BLOOD TYPE ARTERIAL; HCO3-(ACT) 28.5 mmoll (20.0-26.0); METHB 1.3 % (0.0-1.5); O2(CT) 15.9 mL/dL (15.0-23.0); O2HB 96.7 % (95.0-99.0); PCO2(98.6) 22 mmHg (35-45); PO2(98.6) 146 mmHg (60-100); SAMPLE BLOOD; SAO2 98.1 % (95.0-100.0); THB 11.5 g/dL (11.5-17.4)
[2019-02-06 17:42] LABS: MODALITY CANNULA; pH(98.6) 7.65 (7.35-7.45)
[2019-02-06 17:55] LABS: AGAP 13; ALB/GLOB RATIO 1.8; ALBUMIN 4.5 g/dL (3.5-5.0); ALKALINE PHOSPHATASE 73 U/L (32-104); BUN 8 mg/dL (8-22); CALCIUM 9.4 mg/dL (8.8-10.2); CHLORIDE 102 mmol/L (98-107); COSMO 280; CREATININE 0.6 mg/dL (0.5-0.9); ESTIMATED GFR > 60; GLUCOSE 99 mg/dL (70-104); GOT 22 U/L (10-30); GPT 18 U/L (10-36); POTASSIUM 4.1 mmol/L (3.5-5.1); SODIUM 141 mmol/L (136-145); TCO2 26 mmol/L (25-35); TOTAL BILIRUBIN < 0.15 mg/dL (0.20-1.00)
--- NOTE | 2019-02-06 18:11 | PROVIDER DOCUMENTATION ---
This chart was entered by Sophia Augsutin Scribe, acting as scribe for Lizett Monet MD. HPI-Respiratory General - General Chief Complaint: Shortness of Breath Stated Complaint: CANT BREATHE Time Seen by Provider: 02/06/19 16:50 Source: patient, old records Allergies/Adverse Reactions: Patient Allergies Allergy/AdvReac Type Severity Reaction Status Date / Time Penicillins Allergy Severe ANAPHYLAXIS Verified 01/18/19 19:44 piperacillin [From Zosyn] Allergy Severe ANAPHYLAXIS Verified 01/18/19 19:44 tazobactam [From Zosyn] Allergy Severe ANAPHYLAXIS Verified 01/18/19 19:44 morphine Allergy Intermediate RASH Verified 01/18/19 19:44 cephalexin monohydrate * AdvReac Mild LEG Verified 01/18/19 19:44 [From Keflex] CRAMPING doxycycline AdvReac Unknown Verified 01/18/19 19:44 levofloxacin [From Levaquin] AdvReac Unknown Verified 01/18/19 19:44 Home Medications: Home Medication List Medication Instructions Recorded Confirmed Last Taken Type Paroxetine HCl [Paxil] 20 mg PO DAILY 09/21/18 01/18/19 Unknown History Duloxetine [Cymbalta] 30 mg PO BID #0 09/23/18 01/18/19 09/01/18 Rx Acetaminophen 1 - 2 tab PO Q4-6H PRN PRN 01/18/19 01/18/19 Unknown History Fluticasone/Salmeterol [Advair 1 puff INH BID 01/18/19 01/18/19 Unknown History 250-50 Diskus] Gabapentin 1 cap PO BID 01/18/19 01/18/19 Unknown History Mesalamine [Delzicol] 2 cap PO BID 01/18/19 01/18/19 Unknown History Methocarbamol 2 tab PO TID PRN 01/18/19 01/18/19 Unknown History Pantoprazole [Protonix] 1 tab PO DAILY 01/18/19 01/18/19 Unknown History Prazosin [Minipress] 1 cap PO QHS 01/18/19 01/18/19 Unknown History Primidone 1 tab PO QHS 01/18/19 01/18/19 Unknown History Propranolol HCl 1 tab PO TID PRN 01/18/19 01/18/19 Unknown History Sulfamethoxazole/Trimethoprim 1 ea PO BID #20 tab 01/18/19 Unknown Rx [Bactrim Ds Tablet] - History of Present Illness-Resp Nature of Presenting Problem: 33 y/o female presents to ED with SOB onset 30 mins prior to arrival. Pt has hx asthma and has been intubated multiple times. Pt is alert and oriented. Quality of Pain: reports: none Severity in ED: reports: severe Onset/Duration: reports: 1/2 hour ago Timing: reports: still present Context: reports: other (hx asthma) Exposure: reports: unknown cause Cough Quality/Degree: reports: no cough Episode Frequency: frequent episodes Current Respiratory Medication Therapy: Initiated see nurses note Modifying Factors: improves with: nothing Associated Symptoms: reports: shortness of breath, short of breath Similar Symptoms Previously?: Yes (hx asthma) Recently seen or treated by another doctor?: No Review of Systems - Adult - REVIEW OF SYSTEMS - ADULT Constitutional: denies: chills, fever Eyes: reports: no symptoms reported Ears, Nose, Mouth & Throat: reports: no symptoms reported Cardiovascular: denies: chest pain, palpitations Respiratory: reports: shortness of breath. denies: cough Gastrointestinal: denies: abdominal pain, diarrhea, nausea, vomiting Genitourinary: reports: no symptoms reported Musculoskeletal: denies: back pain, joint pain Integumentary: reports: no symptoms reported Neurological: denies: dizziness/vertigo, seizure Psychiatric: reports: no symptoms reported Endocrine: reports: no symptoms reported Hematologic/Lymphatic: reports: no symptoms reported Allergic/Immunologic: reports: no symptoms reported All Other Systems: Reviewed and Negative Past History - Adult - PAST MEDICAL HISTORY-ADULT Review of Records: reports: Old Records Reviewed, Nursing Assessment Review, Medications Reviewed Major Childhood Illnesses: reports: denies history Cardiovascular: reports: denies history Respiratory: reports: asthma Gastrointestinal: reports: Crohn's, GERD Obstetrical/Gynecological: reports: denies history Genitourinary: reports: kidney stones Musculoskeletal: reports: denies history Neurological: reports: denies history, headaches/migraines Psychiatric: reports: denies history Endocrine/Immune: reports: denies history Other Conditions: reports: denies history - PRIOR SURGERIES/PROCEDURES Surgical/Procedure History: reports: BTL, bowel surgery (RESECTION), other (lithrotripsy) - IMMUNIZATION STATUS Childhood Immunizations: See Nurse Assessment Flu Vaccine: See Nurse Assessment - FAMILY HISTORY Family History: reviewed, not pertinent - SOCIAL HISTORY Smoking: non-smoker Substance Use: none/never Alcohol Use Frequency: never Living Situation: family Physical Exam-General - PHYSICAL EXAM-ADULT Initial Vital Signs Reviewed: Yes - CONSTITUTIONAL General Appearance: alert, moderate distress - EYES Eyes: PERRL/EOMI, pink conjunctivae - HEAD, EARS, NOSE, MOUTH & THROAT HENMT: normocephalic/atraumatic, moist mucous membranes, normal ENT inspection - NECK Neck: non-tender, full range of motion - RESPIRATORY Respiratory: chest non-tender, respiratory distress, accessory muscle use, stridor - CARDIOVASCULAR Cardiovascular: normal peripheral pulses, regular rate, rhythm - MUSCULOSKELETAL Back Exam: normal inspection, no CVA tenderness, no vertebral tenderness Extremity: normal range of motion, non-tender - SKIN Integumentary: normal color, warm/dry - NEUROLOGIC Neurologic: grossly normal - PSYCHIATRIC Psych/Mental Status: normal mood/affect, normal thought content, normal thought process, oriented x 3 - HEART Score HEART Score: History: Slightly Suspicious HEART Score: Age: < or = 45 Years HEART Score: Risk Factors for Atherosclerotic Disease: No Risk Factors Known HEART Score: Troponin: < or = Normal Limit Progress - PLAN OF CARE/RESULTS Progress/Plan/Lab Results: Vital Signs - 8 hr 02/06/19 16:50 02/06/19 16:57 02/06/19 17:13 Temperature 97.7 F 97.9 F Pulse Rate 68 70 Respiratory Rate 23 17 Blood Pressure 154/102 154/97 152/136 O2 Sat by Pulse Oximetry 86 L 100 100 Laboratory Results - last 24 hr 02/06/19 02/06/19 02/06/19 17:10 17:10 17:10 WBC 7.28 RBC 3.89 L Hgb 11.7 L Hct 35.5 L MCV 91.3 MCH 30.1 MCHC 33.0 RDW Std Deviation 12.1 Plt Count 346 MPV 11.6 H Immature Gran % (Auto) 0.0 Neut % (Auto) 49.5 Lymph % (Auto) 41.1 [place] % (Auto) 7.4 Eos % (Auto) 1.2 Baso % (Auto) 0.8 Immature Gran # (Auto) 0.00 Neut # (Auto) 3.60 Lymph # (Auto) 2.99 [place] # (Auto) 0.54 Eos # (Auto) 0.09 Baso # (Auto) 0.06 PT INR PTT (Actin FS) Specimen Type Sample Site pH pCO2 pO2 HCO3 Base Excess Oxyhemoglobin ABG O2 Sat (Calculated) ABG O2 Saturation ABG Carboxyhemoglobin ABG Methemoglobin Tato Test A-a O2 Difference Total Hemoglobin Lactate Liter Flow Blood Gas Modality FiO2 % Sodium 141 Potassium 4.1 Chloride 102 Carbon Dioxide 26 Anion Gap 13 BUN 8 Creatinine 0.6 Estimated GFR/1.73 m2 > 60 BUN/Creatinine Ratio 13 Glucose 99 Calculated Osmolality 280 Calcium 9.4 Total Bilirubin < 0.15 L AST 22 ALT 18 Alkaline Phosphatase 73 Troponin T Hqa-C-Xgkzxgrdzqg Pept 126 Total Protein 7.0 Albumin 4.5 Globulin 2.5 Albumin/Globulin Ratio 1.8 Plasma Lactate 02/06/19 02/06/19 02/06/19 17:10 17:35 18:05 WBC RBC Hgb Hct MCV MCH MCHC RDW Std Deviation Plt Count MPV Immature Gran % (Auto) Neut % (Auto) Lymph % (Auto) [place] % (Auto) Eos % (Auto) Baso % (Auto) Immature Gran # (Auto) Neut # (Auto) Lymph # (Auto) [place] # (Auto) Eos # (Auto) Baso # (Auto) PT 12.9 INR 0.96 PTT (Actin FS) 25.3 Specimen Type ARTERIAL Sample Site L RADIAL pH 7.65 H* pCO2 22 L pO2 146 H HCO3 28.5 H Base Excess 4.6 H Oxyhemoglobin 96.7 ABG O2 Sat (Calculated) 15.9 ABG O2 Saturation 98.1 ABG Carboxyhemoglobin 0.10 ABG Methemoglobin 1.3 Tato Test YES A-a O2 Difference 55.0 Total Hemoglobin 11.5 Lactate 2.70 H Liter Flow 3.0 Blood Gas Modality CANNULA FiO2 % 32.0 Sodium Potassium Chloride Carbon Dioxide Anion Gap BUN Creatinine Estimated GFR/1.73 m2 BUN/Creatinine Ratio Glucose Calculated Osmolality Calcium Total Bilirubin AST ALT Alkaline Phosphatase Troponin T < 0.010 Fqk-V-Mrvxiyucyvh Pept Total Protein Albumin Globulin Albumin/Globulin Ratio Plasma Lactate 02/06/19 18:05 WBC RBC Hgb Hct MCV MCH MCHC RDW Std Deviation Plt Count MPV Immature Gran % (Auto) Neut % (Auto) Lymph % (Auto) [place] % (Auto) Eos % (Auto) Baso % (Auto) Immature Gran # (Auto) Neut # (Auto) Lymph # (Auto) [place] # (Auto) Eos # (Auto) Baso # (Auto) PT INR PTT (Actin FS) Specimen Type Sample Site pH pCO2 pO2 HCO3 Base Excess Oxyhemoglobin ABG O2 Sat (Calculated) ABG O2 Saturation ABG Carboxyhemoglobin ABG Methemoglobin Tato Test A-a O2 Difference Total Hemoglobin Lactate Liter Flow Blood Gas Modality FiO2 % Sodium Potassium Chloride Carbon Dioxide Anion Gap BUN Creatinine Estimated GFR/1.73 m2 BUN/Creatinine Ratio Glucose Calculated Osmolality Calcium Total Bilirubin AST ALT Alkaline Phosphatase Troponin T Txg-C-Nxxewrygtok Pept Total Protein Albumin Globulin Albumin/Globulin Ratio Plasma Lactate 1.7 Orders Category Date Time Status cxr [CHEST-1 VIEW] [RAD] Stat Exams 02/06/19 17:00 Completed ABG [RESP] Routine Lab 02/06/19 17:35 Completed BLOOD CULTURE [BLDCUL] Stat Lab 02/06/19 18:05 Results CBC WITH ELECTRONIC DIFF [HEME] Stat Lab 02/06/19 17:10 Completed COMPREHENSIVE METABOLIC PANEL [CHEM] Stat Lab 02/06/19 17:10 Completed LACTATE, PLASMA [CHEM] Stat Lab 02/06/19 18:05 Completed PRO B-NATRIURETIC PEPTIDE Stat Lab 02/06/19 17:10 Completed PROTIME WITH INR [COAG] Stat Lab 02/06/19 18:05 Completed PTT [COAG] Stat Lab 02/06/19 18:05 Completed TROPONIN T Stat Lab 02/06/19 17:10 Completed Albuterol 2.5MG/Ipratrop 0.5MG [Duoneb (A & A)] Med 02/06/19 16:59 Discontinued 6 ml .ROUTE .STK-MED ONE Etomidate [Amidate] Med 02/06/19 17:01 Discontinued 40 mg .ROUTE .STK-MED ONE Lorazepam [Ativan] Med 02/06/19 17:24 Discontinued 1 mg IV NOW ONE Lorazepam [Ativan] Med 02/06/19 17:10 Discontinued 2 mg .ROUTE .STK-MED ONE Methylprednisolone Sod Succ [Solu-Medrol] Med 02/06/19 16:57 Discontinued 125 mg .ROUTE .STK-MED ONE Succinylcholine [Quelicin] Med 02/06/19 17:02 Discontinued 200 mg .ROUTE .STK-MED ONE EKG [EKG] Stat Ther 02/06/19 16:50 Draft Result Diagrams: 02/06/19 17:10 02/06/19 17:10 - REASSESSMENT Reassessment #1 Time Reassessed: 18:37 Status: improving (Patient notes thtqa her breathing is better, but not back to baseline. On exam, she continues to have stridor, although is is much improved.) - EKG 1 Time of EKG reading by physician:: 17:57 EKG Read and Signed by:: Lizett Monet EKG Interpretation (*Must complete 3 of following elements*): Abnormal Rate: 121 Rhythm: Sinus tach [place]: normal QRS: other (possible L atrial enlargement; cannot rule out anterior infarct) RI Interval: normal ST Wave: normal - XRAY 1 XRAY Study: Chest Impression: See EMR Report - CONSULTS/PCP/HOSPITALIST Notification #1 *Consult/PCP/Hospitalist*: Dr. George Time Discussed: 17:05 Reason/Comments: Respiratory distress Consult Disposition: other (Dr. George recommends giving 1 of ativan. He does not want the pt to be intubated if it can be avoided.) #2 Consult: Hospitalist Time Discussed: 18:46 Consult Disposition: Admit (Will be admitted to Hospitalist service under Dr. Marrero) Departure - Departure Date of Disposition Decision: 02/06/19 Time of Disposition Decision: 18:45 DIAGNOSIS: Vocal cord dysfunction Disposition: ADMITTED INPATIENT 09 Certified Medical Emergency: Emergent Condition: Stable Referrals and Follow-Ups: Rick Mendez MD [Primary Care Provider] - - Critical Care Note This patient required my direct & personal management of CC.: No Attestation - Physician/ SHELLY Attestation Patient care was provided by Advanced Practice Provider:: No The physician spent face to face time with patient:: Yes Advanced Practice Provider documentation review:: Supervising physician onsite and consulted in the evaluation and care of this patient. The physician did have a face to face encounter with the patient. This chart was documented by the indicated scribe, (Sophia Augustin Scribe) and accurately reflects the services I performed and decisions made by Tierney churchill Carisa L., MD, as attested by the provider's signature.
--- NOTE | 2019-02-06 18:21 | Diag Imaging Result Doc PS360 ---
CHEST-1 VIEW - 02/06/2019 INDICATION: RESP DISTRESS COMPARISON: 01/18/2019 FINDINGS: The lungs are normally expanded and clear. Heart size and mediastinal contours are normal. No pneumothorax or pleural effusion. IMPRESSION: Negative exam. Electronically signed by Calvin Beck 02/06/2019 6:19 PM
[2019-02-06 18:23] LABS: INR 0.96; PROTIME 12.9 Seconds (11.0-16.0)
[2019-02-06 18:24] LABS: PTT 25.3 Seconds (22.3-41.8)
--- NOTE | 2019-02-06 18:44 | EKG Report ---
Test Performed on : 02/06/2019 4:52:30 PM Test Reason : SOB Blood Pressure : / mmHG Vent. Rate : 121 BPM Atrial Rate : 121 BPM P-R Int : 160 ms QRS Dur : 072 ms QT Int : 316 ms P-R-T Axes : 058 022 -01 degrees QTc Int : 448 ms Sinus tachycardia. Possible Left atrial enlargement Cannot rule out Anterior infarct , age undetermined Abnormal ECG When compared with ECG of 18-JAN-2019 20:34, (Unconfirmed) Vent. rate has increased BY 49 BPM Nonspecific T wave abnormality now evident in Lateral leads Unconfirmed Result
[2019-02-06 19:17] LABS: UR AMPHETAMINES QUAL NONE DETECTED (NONE DETECT); UR BARBITUATES QUAL PRESUMPTIVE POSITIVE (NONE DETECT); UR BENZODIAZEPIN QUAL NONE DETECTED (NONE DETECT); UR CANNABINOIDS QUAL NONE DETECTED (NONE DETECT); UR COCAINE QUAL NONE DETECTED (NONE DETECT); UR METHADONE QUAL NONE DETECTED (NONE DETECT); UR OPIATES QUAL NONE DETECTED (NONE DETECT); UR OXYCODONE QUAL NONE DETECTED (NONE DETECT); UR PCP QUAL NONE DETECTED (NONE DETECT)
[2019-02-06] MEDS ORDERED: ATROVENT NEB INH ONE (20:45)
[2019-02-06] MEDS ORDERED: XOPENEX NEB INH ONE ×2 (20:45→21:00)
[2019-02-06] MEDS ORDERED: NS 500 ML IV ONE (21:05)
[2019-02-06] MEDS ORDERED: NS 500 ML ONE (21:10)
[2019-02-06] MEDS ORDERED: ZOFRAN IV PRN (22:10)
[2019-02-06] MEDS: NS 1,000 ML IV SCH (22:13)
--- NOTE | 2019-02-07 00:20 | HISTORY AND PHYSICAL ---
PRIMARY CARE PROVIDER: Dr. Rick Kovacs. CLOTH WASHER OPERATOR: Dr. George. DATE AND TIME: 02/06/2019 at 1950. CHIEF COMPLAINT: Shortness of breath. HISTORY OF PRESENT ILLNESS: Ms. Romero is a 33-year-old female who has a past medical history of having bronchial asthma, paroxysmal laryngeal spasms and vocal cord dysfunction. Secondary to this she has had to be intubated in the past multiple times. The patient reports that prior to her symptoms starting today that she has felt fine. She denies any recent illnesses. She denies any recent pneumonia or upper respiratory infections. She denies any recent travel or being around anyone who was sick. At approximately 4 p.m. today she stated that she did begin to have some shortness of breath and tightness in her chest. Unfortunately this did continue to get worse. She did present to the ER for further evaluation. Initial vital signs in the ER were temperature 97.7 degrees, heart rate 68, respirations 23, blood pressure was 154/102, oxygen saturation was 86% on room air. The patient was given medications of Solu-Medrol 125 mg IV, Ativan 1 mg IV, and a DuoNeb treatment and since that time her symptoms have improved. The ER physician did consult Dr. George, he did recommend the patient be admitted for observation. She is afebrile. White blood cell count is within normal limits at 7280. Chemistries were pretty unremarkable. Electrolytes were within normal limits. Troponin was less than 0.01, plasma lactate was 1.7. Arterial blood gases did show a PH was 7.65, pCO2 of 22, PO2 of 46, HC03 was 28.5, with a base excess of 4.6, and O2 saturation of 98.1, this was drawn on FiO2 of 32%. A chest x-ray did not show any acute abnormalities per Radiology. EKG showed sinus tachycardia at a rate of 121. She did report a headache and some dizziness earlier when her symptoms started. She as mentioned has reported shortness of breath and does have a cough at times that is present in the ER currently though she states she has not had a cough prior to this. She is reporting some chest tightness that started with her onset of shortness of breath though this has improved some. She denies any abdominal pain, nausea, vomiting or diarrhea. She denies any dysuria or urinary frequency. She denies any pain, numbness, tingling or swelling in extremities. She also denies any fever, body aches or chills. She denies any recent changes to her medications or any new medications. The patient will be admitted to the ICU for observation. REVIEW OF SYSTEMS: A 14-point review of systems was conducted with the patient and all were negative except for pertinent positives mentioned above in the HPI. PAST MEDICAL HISTORY: 1. Bronchial asthma. 2. Proximal laryngeal spasms. 3. Anxiety disorder. 4. Crohn's disease. 5. Vocal cord dysfunction. PAST SURGICAL HISTORY: 1. Bilateral tubal ligation. 2. Small bowel resection. SOCIAL HISTORY: The patient is , her was present at bedside during part of my examination. 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 She denies any previous history of tobacco use. She denies any alcohol or illicit drug use, though does report that she has a history of previous opioid addiction and requests not to opioid medications. FAMILY HISTORY: Positive for Crohn's disease, asthma, COPD, breast cancer, diabetes, leukemia, and hypertension. ALLERGIES: The patient has allergies to penicillin, Zosyn, morphine, Keflex, doxycycline, and Levaquin. HOME MEDICATIONS: 1. Cymbalta 30 mg p.o. b.i.d. 2. Advair 250-50 Diskus 1 puff inhaled b.i.d. 3. Gabapentin 300 mg p.o. t.i.d. 4. Mesalamine 800 mg p.o. b.i.d. 5. Methocarbamol 750 mg p.o. t.i.d. p.r.n. 6. Protonix 40 mg p.o. daily. 7. Paxil 20 mg p.o. at bedtime. 8. Minipress 1 mg p.o. at bedtime. 9. Primidone 50 mg p.o. at bedtime. 10. Propranolol 10 mg 1 tablet p.o. t.i.d. p.r.n. DIAGNOSTIC DATA: White blood cell count is 7280, hemoglobin 11.7, hematocrit 35.5, platelet count is 346,000. PT 12.9, INR 0.96, PTT is 25.3. Sodium 141, potassium 4.1, chloride 102, serum bicarbonate is 26, BUN 8, creatinine 0.6, with a GFR greater than 60, glucose 99, calcium 9.4, total bilirubin is less than 0.15. All other liver function tests were within normal limits. Troponin is less than 0.01. Plasma Lactate 1.7. Arterial blood gases were obtained on FiO2 32%, pH 7.65, pCO2 of 22, PO2 of 146, HC03 is 28. Base Excess 4.6. O2 saturation is 98.1. Urine drug screen was positive for barbiturates. EKG showed sinus tachycardia at a rate of 121 with a QTc of 440. Chest x-ray is showed that the lungs are normally expanded and clear. Heart size and mediastinal contours are normal. There was no pneumothorax or pleural effusion noted. This is per Radiology. PHYSICAL EXAMINATION: VITAL SIGNS: Heart rate 105, respirations 20, blood pressure is 115/90, oxygen saturation is 99% on nasal cannula at 4 L. GENERAL: Ms. Romero is a pleasant 33-year-old female. She was resting in the ER stretcher. She was in no acute distress. She was awake, alert, and able to answer questions appropriately. HEENT: Head is atraumatic and normocephalic. Pupils are equal, round and reactive to light, were 3 mm bilaterally and brisk. Oral mucosa is moist. Oropharynx is clear. NECK: Supple. Trachea is midline. CARDIOVASCULAR: Patient has S1 and S2 present. No murmurs, gallops or rubs appreciated with a slightly tachycardic rate and a regular rhythm. PULMONARY: The patient has symmetrical chest expansion bilaterally. Lung sounds throughout bilateral lung adame did have expiratory wheezing noted, though this was more pronounced in upper lung adame. ABDOMEN: Soft, nondistended and nontender. Bowel sounds are present in all 4 quadrants. EXTREMITIES: No cyanosis or edema noted. Pulse, motor and sensory were intact in all extremities. Radial pulses and pedal pulses were 2+ bilaterally. INTEGUMENTARY: The patient's skin is pink, warm and dry. NEUROLOGICAL: The patient is alert and oriented to person, place, time and situation. She is able move all extremities. There are no focal neurological deficits noted. ASSESSMENT AND PLAN: 1. Dyspnea. 2. Vocal cord dysfunction. For treatment of #1 and #2 the patient previously in the ER did receive Solu-Medrol 125 mg IV, Ativan 1 mg IV and DuoNeb treatment, this did improve her symptoms well. She did have another episode where she became short of breath and did become anxious. We did administer another breathing treatment and Ativan IV, the patient did respond very well to this. Her symptoms have improved and she is resting comfortably at this time and is in no respiratory distress. Other than being slightly tachycardic, her vital signs have returned to within normal limits. Oxygen saturations have returned to mid to high 90s on nasal cannula at 4 L. We will continue with Solu-Medrol 40 mg IV q.12 hours. We will continue with scheduled DuoNeb treatments as well. We have placed orders for p.r.n. Ativan if needed. We did provide a normal saline 500 mL bolus though we will continue with normal saline at 100 mL/h. For this evening we will keep her NPO, and we will monitor her respiratory status closely. She will be placed in the ICU on continuous cardiac and pulse oximetry. We have placed a consult with Dr. George and we will await his evaluation and further recommendations. We will continue to follow her condition closely. 3. Anxiety disorder. We will continue with her Ativan as mentioned above. We are keeping the patient NPO at this time, though once she has been placed back on a regular diet we can continue her regularly prescribed home medication. 4. Deep vein thrombosis prophylaxis provided with sequential compression devices. She has been placed for observation to the ICU for close monitoring. We will repeat a CBC and BMP in the morning. We will await Pulmonology's evaluation. Further orders and recommendations pending hospital course, diagnostic studies and physician evaluation. Dictated by ORTIZ Goddard for Mazin Roach MD cc: Mazin Roach MD I have seen and examined Ms Romero today, was at the bedside. I have also reviewed her labs and imaging studies. Ms Romero presents with vocal cord dysfunction flare. I agree with the above HPI and the plan reflects my opinion discussed with the WATCHMAKING TEACHER. RKQ. NICHOLSON
[2019-02-07] MEDS: DUONEB (A & A) INH SCH ×7 (01:10→23:20)
[2019-02-07] MEDS: ATIVAN IV PRN ×4 (02:33→19:59)
[2019-02-07] MEDS ORDERED: SOLU-MEDROL IV SCH (05:00)
[2019-02-07 06:05] LABS: HEMATOCRIT 32.6 % (37.0-47.0); HEMOGLOBIN 10.7 g/dL (12.0-16.0); MCH 30.2 PG (27-31); MCHC 32.8 g/dL (33-37); MCV 92.1 FL (81-99); RBC 3.54 XMIL (4.2-5.4); RDW 12.1 % (11.5-14.5); WBC 7.48 X1000 (4.8-10.8)
[2019-02-07 06:06] LABS: BASO# 0.01 X1000 (0.0-0.2); BASO% 0.1 % (0.0-0.8); LYMPH# 0.97 X1000 (1.2-3.4); MONO# 0.33 X1000 (0.11-0.59); MONO% 4.4 % (1.7-9.3); NEUT# 6.17 X1000 (1.4-6.5); NEUT% 82.5 % (42.2-75.2); PLT 286 X1000 (130-400)
[2019-02-07 07:05] LABS: AGAP 9; BUN 6 mg/dL (8-22); CALCIUM 8.8 mg/dL (8.8-10.2); CHLORIDE 107 mmol/L (98-107); COSMO 276; CREATININE 0.5 mg/dL (0.5-0.9); ESTIMATED GFR > 60; GLUCOSE 119 mg/dL (70-104); POTASSIUM 4.3 mmol/L (3.5-5.1); SODIUM 139 mmol/L (136-145); TCO2 23 mmol/L (25-35)
[2019-02-07] MEDS: NS 1,000 ML IV SCH (07:44)
[2019-02-07] MEDS: TYLENOL PO PRN ×2 (08:00→15:15)
[2019-02-07] MEDS ORDERED: SOLU-MEDROL IV ONE (09:20)
[2019-02-07] MEDS ORDERED: SOLU-MEDROL ONE (09:29)
[2019-02-07] MEDS ORDERED: SODIUM CHLORIDE 0.9% INJ SCH (09:30)
[2019-02-07] MEDS: DUONEB (A & A) INH PRN (09:30)
--- NOTE | 2019-02-07 10:03 | PROGRESS NOTE ---
DATE: 02/07/2019 INTERVAL HISTORY: Ms. Romero was admitted for respiratory distress and was monitored in the ICU. Apparently, I was told that in the nighttime she would have episodes of coughing followed by wheezing, which would get better after breathing treatment. SUBJECTIVE: As soon as I entered the room, I found the patient to be having a severe coughing spell and post-coughing wheezing. She also had at least 2 episodes of what seems like cough syncope. The patient is currently not able to talk to me because of that episode. VITALS: Temperature 98.2 degrees. Currently, she is tachycardic with a heart rate in the 150s, respiratory rate 20, blood pressure 120/78. She is receiving a breathing treatment. PHYSICAL EXAMINATION: She is in moderate distress because of coughing. Her oral cavity is moist. She does have bilateral end-expiratory wheezes, which is audible even without a stethoscope. Cardiovascular: S1, S2. Tachycardic. No murmur or gallop. Abdomen: Soft, nontender. No lower extremity edema. LABS: Suggestive of normocytic anemia, normal platelet count. Initially, she did have respiratory alkalosis. MICROBIOLOGY: Blood cultures were drawn. IMAGING: Chest x-ray performed did not have any acute cardiopulmonary process. ASSESSMENT AND PLAN: 1. Acute respiratory distress with a prior history of bronchial asthma and vocal cord dysfunction. According to previous pulmonology recommendation, she did have evaluation at [facility] for these symptoms and it was thought that possibly gastroesophageal reflux disease could have contributed to her paroxysmal vocal cord spasm episodes. However, formal documents are pending, which I will request. 2. Anxiety disorder. 3. Crohn's disease. PLAN: I will continue her on albuterol ipratropium nebulization every 4 hours. We will give her additional dose of steroids. Resume her home medications when she is more stable. I appreciate pulmonology recommendation. TIME SPENT: More than 30 minutes of critical care time were spent in taking care of this patient. cc: Amilcar Pradhan MD
[2019-02-07] MEDS: SODIUM CHLORIDE 0.9% INJ SCH (10:07)
[2019-02-07] MEDS: PROTONIX IV SCH (10:07)
[2019-02-07] MEDS ORDERED: INDERAL PO PRN ×2 (10:44→17:30)
[2019-02-07] MEDS: CYMBALTA PO SCH ×2 (11:08→19:59)
[2019-02-07] MEDS: ROBAXIN PO PRN ×2 (11:53→17:52)
--- NOTE | 2019-02-07 12:01 | PULMONOLOGY CONSULTATION ---
DATE: 02/07/2019 MTDD
[2019-02-07] MEDS: NEURONTIN PO SCH ×2 (15:08→19:59)
[2019-02-07] MEDS: ADVAIR 250/50 DISKUS INH SCH (19:35)
[2019-02-07] MEDS: MYSOLINE PO SCH (19:59)
[2019-02-07] MEDS: MINIPRESS PO SCH (19:59)
[2019-02-07] MEDS: DELZICOL PO SCH (19:59)
[2019-02-07] MEDS: PAXIL PO SCH (20:00)
--- NOTE | 2019-02-08 00:12 | PULMONOLOGY CONSULTATION ---
DATE: 02/07/2019 REQUESTING: Dr. Pradhan. REASON FOR CONSULTATION: Dyspnea and vocal cord dysfunction. HISTORY OF PRESENT ILLNESS: Ms. 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 The patient has been intubated several times. The patient has been intubated at this hospital and has been intubated at [facility]. The patient has been evaluated by an ENT physician at [facility] that specializes in vocal cord dysfunction. Reflux precautions were encouraged and cognitive behavioral therapy was recommended. The patient was last evaluated in this hospital in August when she was again intubated. She was successfully extubated. During the hospitalization drug diversion by the patient was identified. The patient has subsequently been admitted and discharged from [facility] for drug rehabilitation. She reports she is 4 months sober. She presented to the emergency room last evening with stridorous respirations. Initially intubation was considered, and with careful management by the ER physician intubation was avoided. This morning upon my arrival she was having an acute stridorous event. She was tachycardic to 150. Respiratory rate was in the 40s. She was having active coughing episodes. She did receive a nebulizer treatment and by slowing her breathing down and focusing her bronchospasm resolved. At the completion of this event, she was completely wheeze free and communicating without difficulty. PAST MEDICAL HISTORY: 1. Vocal cord dysfunction. 2. Multiple intubations as per above. 3. Drug addiction status post rehab as per above. 4. Asthma. 5. Crohn disease. 6. Anxiety disorder. 7. Fibromyalgia. 8. Status post bilateral tubal ligation. SOCIAL HISTORY: No alcohol use. No tobacco use. She currently is working at [employer]. FAMILY HISTORY: Positive for asthma, Crohn disease, breast cancer, diabetes, leukemia and hypertension. REVIEW OF SYSTEMS: Notable for increased cough, increased shortness of breath with the heat. She is having some stress associated with transitioning back after her rehab stay, but she appears to be managing appropriately. PHYSICAL EXAMINATION: General: Reveals a well-developed, well-nourished female, who appears her stated age. Vital Signs: Blood pressure 131/56, heart rate 124, respiratory rate 15, oxygen saturation 98%. HEENT: Pupils are equal and reactive. Oropharynx appears clear. Neck: Supple. Chest: Reveals good air entry bilaterally without wheezing or rhonchi. Cardiac: S1, S2. Abdomen: Soft. Extremities: Without edema. LABORATORIES: Chest x-ray reveals generous heart size but no acute disease. White blood count 7.28, hemoglobin 11.7, eosinophil count 1.2%. Arterial blood gas last night in the emergency room pH 7.65, pCO2 of 22, PO2 of 146. IMPRESSION: A 33-year-old with severe vocal cord dysfunction with acute hypoxemic respiratory failure, acute respiratory distress, tachycardia, anxiety, and gastroesophageal reflux. Clinically she has improved. It is not clear that she does benefit from steroids with the vocal cord dysfunction or if she actually benefits from frequent nebulizations which may make the vocal cord dysfunction worse. RECOMMENDATIONS: 1. Continue observation in the ICU. 2. Attempt to minimize steroid use. Will consider decreasing nebulizer treatment which may be making the vocal cord dysfunction worse. 3. Continue gastric acid suppression. 4. Ongoing encouragement for continued success at rehab. cc: Reji George MD MTDD
[2019-02-08] MEDS: DUONEB (A & A) INH SCH ×6 (02:38→23:20)
[2019-02-08] MEDS: ADVAIR 250/50 DISKUS INH SCH ×2 (08:08→23:18)
[2019-02-08] MEDS: CYMBALTA PO SCH ×2 (08:35→20:59)
[2019-02-08] MEDS: NEURONTIN PO SCH ×3 (08:35→20:59)
[2019-02-08] MEDS: PROTONIX PO SCH (08:35)
[2019-02-08] MEDS: DELZICOL PO SCH ×2 (08:35→20:59)
[2019-02-08] MEDS: TYLENOL PO PRN ×2 (08:47→14:44)
[2019-02-08] MEDS: ROBAXIN PO PRN ×2 (08:48→21:04)
[2019-02-08] MEDS: PROTONIX IV SCH (09:10)
[2019-02-08] MEDS: SODIUM CHLORIDE 0.9% INJ SCH (09:11)
--- NOTE | 2019-02-08 09:53 | PROGRESS NOTE ---
DATE: 02/08/2019 INTERVAL HISTORY: No acute overnight events. Her tachycardia had resolved, and she has been eating her diet. Her home medications were started. She did not have any more wheezing episode. SUBJECTIVE: She is feeling fine. She states she has been on opioid maintenance program using naltrexone since she has not been using any other opioids since about 4 months now. OBJECTIVE: Vital Signs: Currently, temperature 97.9 degrees, pulse 88, respiratory rate 21, blood pressure 127/85. She is saturating 99% on room air. General: Does not appear in acute distress. HEENT: Oral cavity is moist. No pharyngeal congestion. Lungs: Air entry bilaterally equal. No wheeze or rhonchi. Mild crackles in infrascapular region. I instructed her to take deep breath and cough. Abdomen: Soft, nontender. Extremities: No lower extremity edema. LABORATORY DATA: No new labs today. ASSESSMENT AND PLAN: 1. Acute respiratory distress, likely in the setting of vocal cord dysfunction with a component of bronchial asthma. Currently not wheezing. The patient was instructed about calming down and taking slow, deep breath when she experiences those episodes to allow vocal cord relaxation. Nursing team was also educated about monitoring for cough syncope during these episodes. I will transfer the patient to routine medical floor. Pulmonology on board. Outpatient close Pulmonary followup was advised to her. 2. Others. Continue duloxetine, gabapentin, methocarbamol for fibromyalgia; primidone and propranolol for essential tremor as well as tachycardia; mesalamine, which is her Crohn's disease medication; and prazosin. 3. Disposition at time of transfer of patient to medical floor. I strongly encouraged her to discuss with her regular doctor about discontinuing unnecessary medication to avoid polypharmacy. Plan of care discussed with her. All questions have been answered. ADDENDUM: In the afternoon time, Ms. Romero had another episode of acute onset cough, wheeze/stridor. I evaluated her at the bedside. I tried to reassure her, asked her to do pursed lip breathing, helped her calmed down. The entire episode lasted for about 20-30 minutes. She had 3-4 syncopal episodes during this and she required a strong sternal rub during that to help her wake up. She also had one episode of hypoxia during one of the syncope episodes when her saturations dropped to 60s. I was about to start Bag and Mask ventilation on her, however, she eventually woke up and her saturations improved. cc: Amilcar Pradhan MD MTDD
[2019-02-08] MEDS: DUONEB (A & A) INH PRN (13:31)
[2019-02-08] MEDS: ATIVAN IV PRN ×2 (14:44→21:05)
[2019-02-08] MEDS: MINIPRESS PO SCH (20:58)
[2019-02-08] MEDS: PAXIL PO SCH (20:59)
[2019-02-08] MEDS: MYSOLINE PO SCH (20:59)
--- NOTE | 2019-02-09 00:13 | PULMONOLOGY PROGRESS NOTE ---
DATE: 02/08/2019 SUBJECTIVE: The patient is awake, alert, and conversant. She has had no additional episodes of vocal cord spasm. She is tolerating p.o. intake. She is without complaints. PHYSICAL EXAMINATION: General: Reveals a well-developed, well-nourished female, resting comfortably in no distress. Vital signs: Blood pressure 110/73, heart rate 79, respiratory rate 18, oxygen saturation 98% on room air. HEENT: Pupils are equal and reactive. Oropharynx is clear. Neck: Supple. Chest: Reveals good air entry bilaterally without wheezing or rhonchi. Cardiac: S1, S2. Abdomen: Soft. Extremities: Without edema. IMPRESSION: A 33-year-old with 1. Acute hypoxemic respiratory failure. 2. Severe vocal cord dysfunction. 3. Anxiety disorder. 4. Tachycardia. 5. Gastroesophageal reflux disease. PLAN: 1. Anticipate transfer to the floor tomorrow. 2. Minimize steroid use. 3. Continue gastric acid suppression. 4. Anticipate discharge 02/09/2019, if she is doing well. cc: Reji George MD
[2019-02-09] MEDS: DUONEB (A & A) INH SCH ×3 (03:43→11:01)
[2019-02-09] MEDS: ADVAIR 250/50 DISKUS INH SCH ×2 (09:15→20:14)
[2019-02-09] MEDS: TYLENOL PO PRN ×2 (09:24→20:00)
[2019-02-09] MEDS: DELZICOL PO SCH ×2 (09:25→20:00)
[2019-02-09] MEDS: PROTONIX PO SCH (09:25)
[2019-02-09] MEDS: NEURONTIN PO SCH ×3 (09:26→20:00)
[2019-02-09] MEDS: CYMBALTA PO SCH ×2 (09:26→21:00)
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
[2019-02-09] MEDS: DELSYM LIQUID PO SCH ×2 (13:05→20:06)
[2019-02-09] MEDS: ROBAXIN PO PRN ×2 (14:05→20:00)
[2019-02-09] MEDS: MINIPRESS PO SCH (20:00)
[2019-02-09] MEDS: PAXIL PO SCH (21:00)
[2019-02-09] MEDS: MYSOLINE PO SCH (21:00)
--- NOTE | 2019-02-09 23:35 | PULMONOLOGY PROGRESS NOTE ---
DATE: 02/09/2019 SUBJECTIVE: The patient is awake and alert. She had an episode of vocal cord spasm yesterday but did not require intubation. She reports she has done well today. OBJECTIVE: Physical exam reveals a well-developed, well-nourished white female resting comfortably and in no distress. BP 128/84, heart rate 97, respiratory rate 18, oxygen saturation 100%.HEENT: Pupils are equal and reactive. Oropharynx is clear. Neck is supple. Chest reveals good air entry bilaterally without wheezing or rhonchi. Cardiac exam: Regular rate normal S1, normal S2. Abdomen is soft, without hepatosplenomegaly. Extremities are without edema. LABORATORY DATA: No new chemistries or CBC today. No new microbiology data. IMPRESSION: A 33-year-old with: 1. Severe vocal cord dysfunction. 2. Anxiety disorder. 3. Tachycardia. 4. Hypoxemic respiratory failure, which has been transient. PLAN: 1. Continue to observe until the patient has been 24 hours without an episode of vocal cord dysfunction. 2. Would minimize nebulizer treatments unless she has active wheezing on exam. Nebulizer treatments may be stimulating her vocal cords. 3. Continue gastric acid suppression. 4. I agree with Dr. Pradhan. The patient should be counseled not to drive with episodes of vocal cord dysfunction. I would recommend a minimum period of 6 months without an episode of vocal cord dysfunction. 5. Anticipate discharge soon. cc: Reji George MD
[2019-02-10] MEDS: ADVAIR 250/50 DISKUS INH SCH (07:46)
[2019-02-10 07:52] VITALS: BP 129/84
[2019-02-10] MEDS: NEURONTIN PO SCH ×2 (10:10→15:00)
[2019-02-10] MEDS: DELZICOL PO SCH (10:10)
[2019-02-10] MEDS: CYMBALTA PO SCH (10:11)
[2019-02-10] MEDS: TYLENOL PO PRN (10:11)
[2019-02-10] MEDS: ROBAXIN PO PRN ×2 (10:11→15:00)
[2019-02-10] MEDS: PROTONIX PO SCH (10:11)
[2019-02-10] MEDS: DELSYM LIQUID PO SCH (10:17)
--- NOTE | 2019-02-10 18:34 | DISCHARGE SUMMARY ---
ADMISSION DATE: 02/06/2019 DISCHARGE DATE: 02/10/2019 DISCHARGE DISPOSITION: Home. DISCHARGE CONDITION: Alert and orient x3. She has not had any episodes of respiratory distress for more than 24 hours. She did have an episode of a routine coughing spell which lasted for about 3 to 4 minutes, but she was not in any distress during that time. She has been provided detailed discharge instructions about educating her family about these vocal cord dysfunction episodes as well as avoiding driving for 6 months. VITAL SIGNS: At the time of discharge temperature 98.4 degrees, pulse 80, respiratory rate 15, blood pressure 130/84, saturating 99% on room air. PHYSICAL EXAMINATION: General: Does not appear in acute distress. Oral cavity is moist. Lungs: Air entry bilaterally equal. No wheeze, rhonchi or crackles. Heart: S1 normal. No murmur or gallop. Abdomen: Soft, nontender. Extremity: No lower extremity edema. Neurologic: She is alert and oriented x3. DISCHARGE DIAGNOSES: 1. Acute respiratory distress. 2. Paroxysmal vocal cord dysfunction. 3. Anxiety disorder. 4. Opioid use disorder on naltrexone maintenance program. OTHER DIAGNOSES: 1. History of Crohn disease in remission, history of bilateral tubal ligation, history of small bowel resection, history of paroxysmal tachycardia at the time of vocal cord dysfunction episodes. 2. Essential tremor, 3. Anxiety. 4. Multiple episodes of vocal cord dysfunction/spasms since 2018 requiring multiple intubations. including at [facility] where she was previously referred to. DISCHARGE MEDICATIONS: 1. Prazosin 1 capsule at nighttime to avoid vivid dreams prescribed by her opioid maintenance program. 2. Paroxetine 20 mg at nighttime. 3. Primidone 50 mg at nighttime for essential tremor which gives false-positive results for her urine barbiturates. 4. Acetaminophen 500 mg every 6 hours as needed. 5. Advair 250 51 puff inhaled b.i.d., mesalamine 800 mg b.i.d., gabapentin 1 capsule t.i.d., methocarbamol 750 mg t.i.d. as needed for muscle spasm, propranolol 1 tablet p.o. t.i.d. as needed for tachycardia, pantoprazole 40 mg daily. 6. Dextromethorphan liquid 10 mL every 12 hours for cough suppression, 1 bottle has been prescribed. 7. Duloxetine 30 mg b.i.d.. SIGNIFICANT LABS: During hospital admission and discharge, hemoglobin 10.7, platelet 286,000. On admission, her pH was 7.6, pCO2 22, PO2 146 on 3 L nasal cannula. BUN 6, creatinine 0.5. Barbiturates urine screen was positive. Significant microbiology during hospital admission: Blood culture did not have any growth. SIGNIFICANT IMAGING: During hospital admission: Chest x-ray did not have any acute process. Electrocardiogram had a sinus tachycardia, possible left atrial enlargement. HOSPITAL COURSE SUMMARY: Ms. Romero is a 33 years old woman with past medical history of paroxysmal vocal cord dysfunction, came in with another episode of paroxysmal vocal cord function with symptoms of symptoms of coughing fit, marked stridor and respiratory distress. Apparently, patient has had multiple such episodes over the last 8 to 12 months requiring hospital admission. She has been intubated at least 4 to 5 times. She was previously referred to [facility] for evaluation of her vocal cord dysfunction and they had recommended antireflux measures. She was in fact intubated [facility]. During this presentation in the emergency room pulmonology was consulted and it was advised to help her calm down and reassure her to avoid constipation which worked in her favor. She was monitored in ICU and on the floor. During hospital admission she has had 2 such episodes which started with cough, which would progress with coughing, which would progress towards coughing fit, which would progress to prolonged coughing and stridor. During these episodes her heart rate would jump to as high as 140s and she was in a lot of distress. She would also have cough syncope during these episodes, which would require strong physical stimulation. Her entire episodes would last about 20 minutes. However, during these episodes, her provider team was at bedside and she was given reassurance. She was asked to take a deep breath. Pursed lip breath during expiration and her attention was diverted rather than letting her be anxious and the episodes would slowly calm down and intubations were avoided. At the time of discharge, she is provided detailed instructions about educating her family about these episodes and avoiding driving for 6 months. TIME SPENT: More than 30 minutes spent discharging this patient. All of her questions were answered. CONSULTATION DURING HOSPITAL ADMISSION: Pulmonology, Dr. George. cc: MD BHARAT Leal
== END 2019-02-10 15:51 | disposition home or self-care (01) | DRG 155 ==
LOC: ED 16:47 → ICU 16:47 → SUATTDRO 16:48 → OBSVTOIN 16:48 → 3N 02-08 12:24
PROVIDERS: ATTEND Internal Medicine

== ENCOUNTER 2019-05-02 15:28 | Inpatient (IN) ==
[2019-05-02] MEDS ORDERED: ATIVAN IV ONE (15:32)
[2019-05-02] MEDS ORDERED: SOLU-MEDROL IV ONE (15:32)
[2019-05-02] MEDS ORDERED: DUONEB (A & A) INH ONE (15:33)
[2019-05-02] MEDS ORDERED: S2 RACEPINEPHRINE 2.25% ONE ×2 (15:54→19:23)
[2019-05-02] MEDS ORDERED: NS NEB INH SCH ×2 (16:00→16:15)
[2019-05-02] MEDS ORDERED: S2 RACEPINEPHRINE 2.25% INH ONE ×2 (16:00→16:02)
[2019-05-02 16:04] LABS: BASO# 0.08 X1000 (0.0-0.2); EOS# 0.07 X1000 (0.0-0.7); EOS% 0.9 % (0.0-10.0); HEMATOCRIT 33.9 % (37.0-47.0); HEMOGLOBIN 10.7 g/dL (12.0-16.0); LYMPH# 2.37 X1000 (1.2-3.4); LYMPH% 29.5 % (20.5-51.1); MCH 29.2 PG (27-31); MCHC 31.6 g/dL (33-37); MCV 92.6 FL (81-99); MONO# 0.66 X1000 (0.11-0.59); MONO% 8.2 % (1.7-9.3); MPV 11.5 FL (7.4-10.4); NEUT# 4.85 X1000 (1.4-6.5); NEUT% 60.4 % (42.2-75.2); PLT 370 X1000 (130-400); RBC 3.66 XMIL (4.2-5.4); RDW 11.9 % (11.5-14.5); WBC 8.03 X1000 (4.8-10.8)
[2019-05-02 16:16] LABS: AGAP 14; ALB/GLOB RATIO 1.9; ALBUMIN 4.5 g/dL (3.5-5.0); ALKALINE PHOSPHATASE 93 U/L (32-104); BUN 11 mg/dL (8-22); CALCIUM 8.8 mg/dL (8.8-10.2); CHLORIDE 102 mmol/L (98-107); COSMO 277; CREATININE 0.7 mg/dL (0.5-0.9); ESTIMATED GFR > 60; GLUCOSE 101 mg/dL (70-104); GOT 17 U/L (10-30); GPT 17 U/L (10-36); POTASSIUM 3.4 mmol/L (3.5-5.1); SODIUM 139 mmol/L (136-145); TCO2 23 mmol/L (25-35); TOTAL BILIRUBIN 0.23 mg/dL (0.20-1.00); TOTAL PROTEIN 6.9 g/dL (6.3-8.3)
--- NOTE | 2019-05-02 16:21 | Diag Imaging Result Doc PS360 ---
CHEST-1 VIEW - 05/02/2019 INDICATION: sob COMPARISON: 02/06/2019 FINDINGS: Lung volumes are critically low with nonspecific central crowding or atelectasis. Heart size is top normal. IMPRESSION: Critically low lung volumes. Electronically signed by Calvin Beck 05/02/2019 4:19 PM
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
[2019-05-02] MEDS ORDERED: HYDROXYZINE IM ONE (17:20)
[2019-05-02] MEDS ORDERED: DUONEB (A & A) INH PRN (17:26)
[2019-05-02] MEDS ORDERED: ATROVENT NEB INH SCH (19:30)
[2019-05-02] MEDS ORDERED: XOPENEX NEB INH SCH (19:30)
[2019-05-02] MEDS: DELZICOL PO SCH (20:00)
[2019-05-02] MEDS: NEURONTIN PO SCH (20:00)
[2019-05-02] MEDS: ROBAXIN PO PRN (20:04)
--- NOTE | 2019-05-02 20:04 | EKG Report ---
Test Performed on : 05/02/2019 5:56:05 PM Test Reason : sob Blood Pressure : / mmHG Vent. Rate : 110 BPM Atrial Rate : 110 BPM P-R Int : 160 ms QRS Dur : 080 ms QT Int : 352 ms P-R-T Axes : 059 013 031 degrees QTc Int : 476 ms Sinus tachycardia. Minimal voltage criteria for LVH, may be normal variant Nonspecific T wave abnormality Abnormal ECG When compared with ECG of 06-FEB-2019 16:52, Nonspecific T wave abnormality has replaced inverted T waves in Inferior leads Unconfirmed Result
[2019-05-02 20:08] LABS: UR AMPHETAMINES QUAL NONE DETECTED (NONE DETECT); UR BARBITUATES QUAL NONE DETECTED (NONE DETECT); UR BENZODIAZEPIN QUAL NONE DETECTED (NONE DETECT); UR CANNABINOIDS QUAL NONE DETECTED (NONE DETECT); UR COCAINE QUAL NONE DETECTED (NONE DETECT); UR METHADONE QUAL NONE DETECTED (NONE DETECT); UR OPIATES QUAL NONE DETECTED (NONE DETECT); UR OXYCODONE QUAL NONE DETECTED (NONE DETECT); UR PCP QUAL NONE DETECTED (NONE DETECT)
[2019-05-02] MEDS: ADVAIR 250/50 DISKUS INH SCH (20:09)
--- NOTE | 2019-05-02 20:10 | HISTORY AND PHYSICAL ---
PRIMARY CARE PROVIDER: Dr. Rick Sage. PRIMARY STAFFING ASSISTANT: Dr. George. CHIEF COMPLAINT: Throat swelling. HISTORY OF PRESENT ILLNESS: Ms. Nicole Romero is a 33-year-old female with a medical history of vocal cord dysfunction, multiple intubations secondary to stridor and asthma, and also history of a drug addiction and rehab with recovery. Was at work today. Was eating lunch. Apparently, she was eating pizza rolls. Then, she kind of felt like her throat was getting a little itchy and burning a little bit, and started swelling a little more, and the stridor developed. She presented to the emergency department where she received IV steroids, nebulizers, Ativan, 2 racemic epinephrine treatments with resolution of her symptoms. She will be monitored overnight in the [facility] and will consult Dr. George. PAST MEDICAL HISTORY: 1. Vocal cord dysfunction. 2. Multiple intubations secondary to stridor and vocal cord dysfunction or laryngospasms. 3. Drug addiction with rehab; currently has been sober for several months. 4. Asthma since a child. 5. Crohn disease. 6. Anxiety disorder. 7. Fibromyalgia. 8. Pulmonary hypertension, 35 mmHg. 9. Kidney stones. 10. Chronic constipation. 11. Mild gastroparesis. 12. Left cephalic subclavian junction thrombus in the past that is superficial. SURGICAL HISTORY: 1. Bilateral tubal ligation. 2. Small bowel resection. 3. PICC line placement and removal. 4. Left ureteral stent with stone extraction. 5. EGD with biopsy of the stomach and the duodenum. That biopsy apparently showed chronic gastritis. SOCIAL HISTORY: Drug addiction in the past. She has been sober from that. Currently denies alcohol, tobacco. She is a nurse here, currently working, and she is . FAMILY HISTORY: Cousin had asthma and Crohn's. Grandmother had breast cancer. Another grandmother had diabetes. Grandfather had leukemia and hypertension. Another grandmother had hypertension. Mother had Henna's and hypertension. Father had diverticulosis and GI bleeding. ALLERGIES: Penicillin, Zosyn, morphine, Keflex, doxycycline, and Levaquin. HOME MEDICATIONS: 1. Paxil 20 mg p.o. nightly. 2. Tylenol 500 to 1000 mg p.o. every 4 to 6 hours p.r.n. 3. Advair 250/50 one puff inhaled twice daily. 4. Mesalamine 800 mg p.o. twice daily. 5. Neurontin 300 mg p.o. t.i.d. 6. Robaxin 750 mg 2 tablets p.o. t.i.d. p.r.n. 7. Protonix 40 mg p.o. daily. REVIEW OF SYSTEMS: A 14 point review of systems are complete and all are negative for those mentioned above in HPI. PHYSICAL EXAMINATION: VITAL SIGNS: Temperature 98.1 degrees, heart rate 109, respiratory rate 20, blood pressure 134/67, O2 saturation 100% on room air. GENERAL: Ms. Nicole Romero is a 33-year-old female. She is in no acute distress. She is able to answer questions appropriately. HEENT: Atraumatic, normocephalic. Pupils equal, round, reactive to light. Extraocular movements intact. Mucous membranes are moist. NECK: Trachea midline. CARDIOVASCULAR: S1, S2. Regular rate and rhythm. No rubs, gallops, murmurs. No lower extremity edema. +2 dorsalis and radial pulses. Negative JVD or carotid bruits. PULMONARY: Clear to auscultate. Bilateral breath sounds. No accessory muscle use or work of breathing noted. GI: Soft, nontender, and nondistended. Positive bowel sounds x4. EXTREMITIES: Moves all extremities equally. Full range of motion. NEUROLOGIC: Alert and oriented x3. Follows commands. Sensory is intact. SKIN: Warm, dry, intact. LABORATORY DATA: White blood cells 8000, hemoglobin 10, hematocrit 33, platelet count 370,000. Sodium 139, potassium 3.9, BUN 11, creatinine 0.7, glucose 101, calcium 8.8, bilirubin 0.23, AST 17, ALT 17, albumin 4.5. IMAGING: Chest x-ray: Critically low lung volumes, nonspecific central or atelectasis. ASSESSMENT AND PLAN: 1. Vocal cord dysfunction and frequent laryngospasms, improved after steroids and nebulizers. Pulmonary is being consulted. We will monitor her in the [facility] overnight as she is high risk for frequent intubation secondary to these laryngospasms, nebulizers, and intravenous steroids. 2. Asthma. Again, she is on steroids and nebulizers. 3. History of Crohn disease, stable. 4. Anxiety disorder. She got Ativan in the emergency room. 5. Deep venous thrombosis prophylaxis with sequential compression devices. Dictated by ORTIZ Leonard for Mazin Roach MD cc: ORTIZ Leonard MD
[2019-05-02] MEDS ORDERED: NS 1,000 ML IV ONE (20:44)
[2019-05-02] MEDS ORDERED: PAXIL PO SCH (21:00)
--- NOTE | 2019-05-02 22:40 | PULMONOLOGY CONSULTATION ---
DATE: 05/02/2019 PULMONARY/CRITICAL CARE CONSULTATION: REASON FOR CONSULTATION: Acute respiratory distress. 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 She has a history of asthma, but has had multiple intubations both at this hospital and she was also intubated at [facility]. After intubation, her wheezing resolves and she has normal airway pressures. She has been diagnosed with a vocal cord dysfunction syndrome. She has been evaluated at [facility] by an Ear, Nose, and Throat specialist in this area, who has encouraged reflux precautions and cognitive behavioral therapy. The patient was diverting drugs and has had a stay at [place]. The patient was working on the floor today, when she developed increased wheezing. The patient was evaluated in the emergency room and had vocal cord dysfunction with audible wheezing which resolved. I was notified by the ER physician at that time. I recommended that she be placed in observation overnight because in the past, she has been admitted to the hospital only to be placed on the floor and subsequently having additional laryngospasm events. At least one of those episodes ended up with an intubation. I was in the hospital rounding on other patients this evening when I was called to the bedside. The patient was having audible wheezing and was in distress. She was on a non-rebreather with adequate oxygenation. She was tachycardic with a heart rate of 155. On exhalation, she wheezes, but also you can hear a vocal cord fluttering. The patient was placed on humidified O2, and I stood at the bedside for over 30 minutes. She slowly improved with decrease in heart rate. The wheezing completely resolved and she could speak. With resolution of the audible wheezing, her chest was also clear. PAST MEDICAL HISTORY: 1. Vocal cord dysfunction with multiple intubations as per above. 2. History of drug addiction with successful rehabilitation stay as per above. 3. Likely component of asthma. 4. Crohn's disease. 5. Fibromyalgia. 6. Anxiety disorder. 7. Status post bilateral tubal ligation. SOCIAL HISTORY: No tobacco use. No alcohol use indicated. FAMILY HISTORY: Positive for breast cancer, asthma, Crohn's, hypertension, breast cancer, Henna's thyroiditis. REVIEW OF SYSTEMS: Limited given recent events, but was negative when performed by the admitting clinician earlier today. PHYSICAL EXAMINATION: Now reveals a smiling, well-developed, well-nourished, white female, resting comfortably and in no distress.Chest: Good air entry bilaterally. Cardiac: S1, S2. Abdomen: Soft. Chest: Clear without wheezing or rhonchi. Extremities: Without edema. LABORATORIES: Sodium 139, potassium 3.4, chloride 102, bicarbonate 23. ASSESSMENT: A 33-year-old with: 1. Vocal cord dysfunction. 2. Hypoxemic respiratory failure with resolution. 3. Acute respiratory distress with resolution. PLAN: 1. Continued humidified air through the evening. 2. Ask her to limit speech and coughing this evening. 3. Nebulizers p.r.n. Routine nebulizer treatment may exacerbate her vocal cord dysfunction. 4. Agree with course of steroids, but would make it abbreviated. 5. Consider discharge tomorrow if she remains event free overnight. TIME SPENT IN CRITICAL CARE MANAGEMENT: One hour. cc: Reji George MD
[2019-05-03] MEDS: SOLU-MEDROL IV SCH ×2 (00:59→07:39)
[2019-05-03] MEDS: TYLENOL PO PRN ×2 (00:59→08:42)
[2019-05-03 06:36] LABS: HEMATOCRIT 30.9 % (37.0-47.0); HEMOGLOBIN 9.7 g/dL (12.0-16.0); LYMPH# 0.57 X1000 (1.2-3.4); LYMPH% 6.7 % (20.5-51.1); MCH 29.4 PG (27-31); MCHC 31.4 g/dL (33-37); MCV 93.6 FL (81-99); MONO# 0.09 X1000 (0.11-0.59); MONO% 1.1 % (1.7-9.3); MPV 11.5 FL (7.4-10.4); NEUT# 7.88 X1000 (1.4-6.5); NEUT% 92.2 % (42.2-75.2); PLT 333 X1000 (130-400); WBC 8.54 X1000 (4.8-10.8)
[2019-05-03 07:01] LABS: AGAP 5; ALB/GLOB RATIO 1.7; ALBUMIN 4.2 g/dL (3.5-5.0); ALKALINE PHOSPHATASE 81 U/L (32-104); BUN 11 mg/dL (8-22); CALCIUM 8.8 mg/dL (8.8-10.2); CHLORIDE 106 mmol/L (98-107); COSMO 280; CREATININE 0.6 mg/dL (0.5-0.9); ESTIMATED GFR > 60; GLUCOSE 189 mg/dL (70-104); GOT 13 U/L (10-30); GPT 14 U/L (10-36); POTASSIUM 4.3 mmol/L (3.5-5.1); SODIUM 138 mmol/L (136-145); TCO2 27 mmol/L (25-35); TOTAL BILIRUBIN < 0.15 mg/dL (0.20-1.00); TOTAL PROTEIN 6.7 g/dL (6.3-8.3)
[2019-05-03] MEDS: ADVAIR 250/50 DISKUS INH SCH (07:39)
[2019-05-03 07:45] LABS: LYMPHS 14 % (21-51); SEGS 86 % (42-75)
[2019-05-03] MEDS: NEURONTIN PO SCH (08:39)
[2019-05-03] MEDS: DELZICOL PO SCH (08:39)
[2019-05-03] MEDS: ROBAXIN PO PRN (08:42)
[2019-05-03] MEDS ORDERED: PROTONIX PO SCH (09:00)
--- NOTE | 2019-05-03 09:09 | Diag Imaging Result Doc PS360 ---
CHEST-2 VIEWS - 05/03/2019 INDICATION: short of breath COMPARISON: 05/02/2019 FINDINGS: The lungs are normally expanded and clear. Heart size and mediastinal contours are normal. No pneumothorax or pleural effusion. IMPRESSION: Negative exam. Electronically signed by Calvin Beck 05/03/2019 9:06 AM
[2019-05-03] MEDS ORDERED: ZOFRAN IV PRN (09:37)
[2019-05-03] MEDS ORDERED: PHENERGAN PR PRN ×2 (10:23→10:45)
--- NOTE | 2019-05-03 11:23 | Diag Imaging Result Doc PS360 ---
EXAM: CT NECK W/O CONTRAST 05/03/2019 HISTORY: deviation of trachea on plain film TECHNIQUE: This exam was performed using automated exposure control, adjustment of mA or kV according to patient size, and/or use of iterative reconstruction technique. COMMENT: The visualized paranasal sinuses are clear. The nasopharynx is unremarkable. The parotid glands are symmetrical in appearance. There is an enlarged right submandibular node measuring almost 18 mm in long axis. It does have a fatty hilus however and a cortical thickness of less than 4 mm. The submandibular glands are symmetrical in appearance. The epiglottis is not enlarged. There is no evidence of pharyngeal mass or abnormal parapharyngeal fluid collection. The thyroid gland is not enlarged. The visualized portion of the chest is unremarkable. IMPRESSION: Right submandibular adenopathy. Electronically signed by Fuad Awan 05/03/2019 11:20 AM
[2019-05-03 11:30] VITALS: BP 112/59
--- NOTE | 2019-05-04 05:11 | PULMONOLOGY PROGRESS NOTE ---
DATE: 05/03/2019 INTERIM HISTORY: Patient is awake, alert, and conversant. She reports she had a good evening. The patient's chest x-ray was reviewed by this practitioner earlier this morning, and it appears she might have slight tracheal deviation. CT scan of the neck was performed which reveals some mild right submandibular adenopathy, but no tracheal deviation or tracheal abnormalities. OBJECTIVE: The patient has been afebrile for the last 24 hours. Blood pressure 112/59, heart rate 107, respiratory rate 12, and oxygen saturation 96% on room air.HEENT: Pupils are equal and reactive. Oropharynx is clear. Neck: Supple. Lungs: Chest reveals good air entry bilaterally without wheezing, rales, or tactile fremitus. Cardiac: Slight increased rate. Regular rhythm. Abdomen: Soft. Extremities: Without edema. LABORATORIES: White blood count 8.54, hemoglobin 9.7, and platelet count 333,000. IMPRESSION: A 33-year-old with: 1. Vocal cord dysfunction with laryngospasm. 2. Acute hypoxemic respiratory failure. DISCUSSION: A 33-year-old with problems outlined above. This is a recurrent phenomenon. PLAN: 1. I agree with plans for discharge home today. 2. Encourage patient to continue to follow up with her therapist. 3. Encourage patient to minimize caffeine intake and to avoid all drugs. cc: Reji George MD
== END 2019-05-03 14:43 | disposition home or self-care (01) | DRG 154 ==
LOC: ED 15:28 → 2N 15:29 → SUATTDRO 15:29
PROVIDERS: ATTEND Internal Medicine